=== PATIENT | male | born 1955 | race Caucasian/White ===

== ENCOUNTER → 2016-09-20 | Outpatient (CLI) | payer MEDICARE ==
[~2016-09-20] MED LIST: ACET325T49 PO; ALPR1T; ALPR1T PO; ALPR1TAB7 PO; ASP325TEC PO; ASP81CT; ASP81TEC PO; ASPI-586 PO; ATOR10TA PO; BUDE10.2 IH; CALTRATE PO; CARV12.52; CEFU500T5 PO; CRV25T PO; DAPA10TA PO; DIAZ10TA PO; DOCU-143 PO; ENAL2.5T PO; ENLP5T PO; FEXO-104 PO; FEXO-46 PO; FEXO180T; FOLI1TAB24 PO; FURO20TA4 PO; HALO5VIA12 IM; HYDR-3583 PO; HYDR-3816 PO; ICOS1CAP PO; INSASP10V; INSASP10V SQ; INSU100V16 SQ; INSU100V6 SQ; INSU100V8; IPRA3AMP INH; LEVO750T39 PO; MAGN400T6 PO; Multivitamins/Minerals Therap PO; NF-ESOM40C; NF-LOVAZAC PO; OMEG1CAP PO; OMEG1CAP51; OMEP20CA12 PO; OXYC20TA54 PO; PANT40TA3 PO; PARO20TA57 PO; POLY119P5 PO; POLY255P PO; TIZA2TAB3 PO; TRAZ-28 PO; TRAZ150T42 PO; TRAZ150T72 PO; TRAZADONE; TRZ100T
--- OUTSIDE RECORDS SUMMARY | 2016-09-20 11:27 | XMS REPORT | Continuity of Care Document ---
Author Author [facility] Organization [facility] Address Unknown Phone Unavailable Care Team Providers Care In Flight Technician Name Role Phone Database, Not In PCP Unavailable Source Comments Some departments are not documenting in the electronic medical record. If you do not see the information that you expected, contact Release of Information in the Health Information Management department at [phone] for further assistance in locating additional records.[facility] Active Allergies and Adverse Reactions No Active Allergies Current Medications Prescription Sig. Disp. Refills Start End Date Status Date carvedilol (COREG) 25 mg Take 1 Tab by mouth Twice Active tablet Daily With Meals. enalapril (VASOTEC) 5 mg Take 1 Tab by mouth Active tablet Daily. furosemide (LASIX) 20 mg Take 1 Tab by mouth Daily Active tablet With Breakfast. insulin glargine (LANTUS) Inject into area(s) as Active 100 unit/mL injection directed Take as Directed. 10 units am, 45 units bedtime insulin aspart (NOVOLOG) Inject into area(s) as Active 100 unit/mL injection directed Three Times Daily With Meals. 23 units with breakfast, 10 units with lunch, 43 units with dinner [facility]-3 Fatty Take 4 Caps by mouth Active Acids-Vitamin E (FISH Twice Daily. OIL) 1,000 mg Cap fexofenadine,+, (SHIRA) Take 180 mg by mouth Active 180 mg tablet Daily. omeprazole DR,+, Take 20 mg by mouth Active (PRILOSEC) 20 mg capsule Daily. citalopram (CELEXA) 40 mg Take 1 Tab by mouth Active tablet Daily. paroxetine (PAXIL) 20 mg Take 1 Tab by mouth Active tablet Daily. trazodone (DESYREL) 150 Take 1 Tab by mouth At Active mg tablet Bedtime as needed. for sleep alprazolam (XANAX) 1 mg Take 1 mg by mouth Three Active tablet Times Daily. magnesium oxide (MAG-OX) Take 1 Tab by mouth Active 400 mg tablet Daily. fish oil /omega-3 fatty Take 4,000 mg by mouth Active acids (SEA-OMEGA) Daily. 340/1000 mg Cap cephalexin (KEFLEX) 500 Take 1 Cap by mouth Four 12 Cap 0 01/09/ Active mg capsule Times Daily. 10 Active Problems Problem Noted Date Cardiomyopathy ([facility]) 01/08/2010 Overview: - EF reportedly in past 30-35% - Echocardiogram 06/02/2009 L Ventricle dilation, severe hypokinesia involving the anterior wall, anteroseptum, and anterolateral wall. Moderate hypokinesia involving the rest of the left ventricle. Systolic function reduced estimated EF 40% Echogenic density noted at the apex, most probably representing apical thrombus.left atrium dilation. Right atrium and ventricle normal in size. Estimated pulmonary artery pressure 35mmHg - 12/06/09 Follow up Echo EF 35-40% CHF (congestive heart failure) ([facility]) 01/08/2010 Overview: NYHA Class 3 Sxs DM (diabetes mellitus) ([facility]) 01/08/2010 HTN (hypertension) 01/08/2010 Pulmonary hypertension ([facility]) 01/08/2010 Hypercholesteremia 01/08/2010 IVCD (intraventricular conduction defect) 01/08/2010 Overview: 12/06/09 [id number] S/P cardiac cath 01/08/2010 Overview: - Reported Cardiac cath in 2003 - Cardiac [id number] [facility] in [facility]--Large LV EF 40%, Nml LM and "huge" nml LCx, LAD large with minimal plaque in mid portion, RCA dimunitive and no signif narrowing Social History Tobacco Use Types Packs/Day Years Used Date Never Assessed Last Filed Vital Signs Vital Sign Reading Time Taken Blood Pressure 136/92 01/09/2010 2:00 PM CDT Pulse 69 01/09/2010 4:10 PM CDT Temperature 36.3 C (97.3 F) 01/09/2010 12:07 PM CDT Respiratory Rate - - Height 1.88 m (6' 2") 01/09/2010 6:00 AM CDT Weight 124.739 kg (275 lb) 01/09/2010 6:00 AM CDT Body Mass Index 35.29 01/09/2010 6:00 AM CDT Oxygen Saturation 95% 01/09/2010 2:00 PM CDT Plan of Care Health Maintenance Due Date Last Done Comments Physical (Comprehensive) 11/30/1963 Exam Pertussis Vaccine 11/30/1967 Tetanus Vaccine 1973 Dilated Eye Exam 1974 Foot Exam 1974 Hba1c 1974 Microalbumin 1974 Pneumonia Vaccine (Dm) 1974 Colorectal Cancer 2006 Screening Influenza Vaccine 04/18/2016 Results from Last 3 Months Not on file
--- NOTE | 2016-09-20 12:56 | Diagnostic Imaging Report ---
PROCEDURE: CT lumbar spine without contrast. TECHNIQUE: Multiple contiguous axial images were obtained through the lumbar spine without the use of intravenous contrast. Sagittal and coronal reformations were then performed. INDICATION: Back pain. CT lumbar spine without contrast. FINDINGS: There are postop changes from discectomy with cage insertion at L4-L5. There is an anchor screw in the L5 vertebral body on the left stabilizing the disc material. Patient is dorsal fusion rods at L4-L5. Bilaterally at L4 and L5 with pedicle screws. The hardware appears to be intact. The screws appear to be in good position. There is advanced degenerative disc changes at L5-S1. The L5-S1 disc space is essentially fused. There is a very slight retrolisthesis at that level. The T12-L1, L1-L2, L2-L3 and L3-L4 disc spaces are unremarkable. IMPRESSION: Postop changes from discectomy fusion at L4-L5 with laminectomies. There is chronic L5-S1 disc fusion. There are no acute abnormality seen in the lumbar spine. Dictated by: Dictated on workstation # [id number]
== END ==
LOC: RAD 11:23
PROVIDERS: ATTEND Orthopaedic Surgery
DX: M54.16 Radiculopathy, lumbar region (principal)
CPT/HCPCS: 72131

== ENCOUNTER 2016-11-24 20:15 | Observation (INO) | payer MEDICARE ==
[~2016-11-24] VITALS: Ht 190.5 cm; Wt 120.8 kg
[~2016-11-24 20:15] MED LIST changes: -PANT40TA3 PO; -POLY255P PO
[2016-11-24] MEDS ORDERED: TRAZ150T72 PO (20:35)
[2016-11-24] MEDS ORDERED: PANT40TA3 PO (20:35)
[2016-11-24] MEDS ORDERED: OXYC20TA54 PO (20:35)
[2016-11-24] MEDS ORDERED: POLY255P PO (20:35)
[2016-11-24 20:42] LABS: BASOPHILS # (AUTO) 0.1 10^3/uL (0.0-0.1); BASOPHILS % (AUTO) 1 % (0-10); EOSINOPHILS # (AUTO) 1.6 10^3/uL (0.0-0.3); EOSINOPHILS % (AUTO) 13 % (0-10); LYMPHOCYTES # (AUTO) 3.3 X 10^3 (1.0-4.0); LYMPHOCYTES % (AUTO) 28 % (12-44); MEAN CORPUSCULAR HEMOGLOBIN 31 PG (25-34); MEAN CORPUSCULAR HGB CONC 35 G/DL (32-36); MEAN CORPUSCULAR VOLUME 88 FL (80-99); MEAN PLATELET VOLUME 10.6 FL (7.4-10.4); MONOCYTES # (AUTO) 0.6 X 10^3 (0.0-1.0); MONOCYTES % (AUTO) 5 % (0-12); NEUTROPHILS # (AUTO) 6.4 X 10^3 (1.8-7.8); NEUTROPHILS % (AUTO) 54 % (42-75); PLATELET COUNT 172 10^3/uL (130-400); RED BLOOD COUNT 4.65 10^6/uL (4.35-5.85); RED CELL DISTRIBUTION WIDTH 13.5 % (10.0-14.5); WHITE BLOOD COUNT 11.9 10^3/uL (4.3-11.0)
[2016-11-24 20:49] LABS: INR 1.1 (0.8-1.4); PROTHROMBIN TIME PATIENT 13.9 SEC (12.2-14.7)
[2016-11-24 21:00] LABS: ALANINE AMINOTRANSFERASE 29 U/L (0-55); ALBUMIN 3.6 G/DL (3.2-4.5); ALCOHOL 197 MG/DL (<10); ANION GAP 14 MMOL/L (5-14); ASPARTATE AMINO TRANSFERASE 30 U/L (5-34); BILIRUBIN,TOTAL 0.7 MG/DL (0.1-1.0); BLOOD UREA NITROGEN 11 MG/DL (7-18); BUN/CREATININE RATIO 14; CARBON DIOXIDE 19 MMOL/L (21-32); CHLORIDE 96 MMOL/L (98-107); CREATININE SERUM 0.81 MG/DL (0.60-1.30); GFR ESTIMATED > 60; GLUCOSE 161 MG/DL (70-105); POTASSIUM 4.2 MMOL/L (3.6-5.0); SODIUM 129 MMOL/L (135-145); TOTAL PROTEIN 6.5 G/DL (6.4-8.2)
--- NOTE | 2016-11-24 21:04 | Diagnostic Imaging Report ---
INDICATION: Fall with pelvic pain. EXAM: AP pelvis obtained at 9:02 hours p.m. FINDINGS: No fracture or acute bony abnormality is seen. There are postop changes in the lumbar spine. IMPRESSION: No acute pelvic fracture. Dictated by: Dictated on workstation # [id number]
--- NOTE | 2016-11-24 21:05 | Diagnostic Imaging Report ---
INDICATION: Fall with left leg pain. EXAM: AP and lateral views of the left tibia and fibula are obtained at 9:07 hours p.m. FINDINGS: There is an old fracture deformity of the left fibular neck. There is an oblique fracture of the distal fibula at the ankle joint level without significant displacement. Suggest correlation with ankle series. IMPRESSION: Acute oblique fracture of the distal fibula at the level of the ankle joint. Suggest correlation with ankle series. There is an old fracture deformity of the fibular neck proximally. Dictated by: Dictated on workstation # [id number]
--- NOTE | 2016-11-24 21:07 | Diagnostic Imaging Report ---
INDICATION: Fall with left foot pain. EXAM: AP, oblique and lateral views of the left foot are obtained. FINDINGS: There is an acute oblique fracture of the distal fibula at the level of the ankle joint. There is diffuse degenerative change of the interphalangeal joints and the first MTP joint. There is a mild posterior calcaneal spurring. IMPRESSION: Acute oblique fracture of the distal fibula at the level of the ankle joint. Underlying degenerative changes. Dictated by: Dictated on workstation # [id number]
--- NOTE | 2016-11-24 21:08 | Diagnostic Imaging Report ---
INDICATION: Fall. EXAM: Frontal chest obtained at 9:00 hours p.m. COMPARISON: 09/10/2015. FINDINGS: There is cardiomegaly. Pacemaker device is unchanged. There is no pneumothorax or pleural fluid or focal infiltrate. IMPRESSION: Cardiomegaly, unchanged pacemaker device. No acute infiltrate, edema or pleural fluid. Dictated by: Dictated on workstation # [id number]
--- NOTE | 2016-11-24 21:17 | Diagnostic Imaging Report ---
INDICATION: Fall with head and neck pain CT brain findings: Noncontrast brain CT is performed. There were no extra-axial fluid collections. No intracranial hemorrhage. No intracranial mass or mass effect. No midline shift. The ventricles are normal in size and position. There are mild low-density changes in the deep white matter compatible with chronic ischemic change. Calvarial windows show no fractures. CT cervical spine findings: Axial slices were obtained with sagittal and coronal reconstructions without contrast. There was no evidence of cervical spine fracture. There is no subluxation or malalignment. There is marked diffuse degenerative change with disc space narrowing and osteophyte formation at essentially all levels. IMPRESSION: CT brain was unremarkable CT cervical spine shows multilevel degenerative changes with no acute fracture or subluxation. Dictated by: Dictated on workstation # [id number]
[2016-11-24 21:18] LABS: BAND NEUTROPHILS 1 %; BASOPHILS % (MANUAL) 0 %; EOSINOPHILS % (MANUAL) 17 %; LYMPHOCYTES % (MANUAL) 32 %; NEUTROPHILS % (MANUAL) 48 %
--- NOTE | 2016-11-24 21:29 | Diagnostic Imaging Report ---
INDICATION: Fall with back pain CT of the thoracic and lumbar spine obtained with axial slices without contrast and sagittal and coronal reconstructions. Patient has had previous fusion at L4-5 with disc prosthesis. The hardware appears in anatomic alignment. There is disc space narrowing at L5-S1 with osteophyte formation and slight retrolisthesis which appears chronic. There is osteophyte formation throughout the mid to lower thoracic spine and lumbar spine. There is no compression deformity or acute fracture. There is no overt canal narrowing. There is old fracture of the left L3 transverse process. There is an old fracture of the left L2 transverse process. IMPRESSION: Postoperative and chronic changes in the thoracolumbar spine as described above with no acute fracture. There is chronic mild retrolisthesis of L5 on S1. There are old left L2 and L3 transverse process fractures. Dictated by: Dictated on workstation # [id number]
[2016-11-24 21:30] VITALS: BP 127/89
[2016-11-24 22:30] VITALS: BP 133/88
[2016-11-24 22:56] LABS: BILIRUBIN,URINE NEGATIVE (NEGATIVE); KETONES,URINE NEGATIVE (NEGATIVE); LEUKOCYTE ESTERASE ,URINE NEGATIVE (NEGATIVE); NITRITE,URINE NEGATIVE (NEGATIVE); PH,URINE 6.5 (5-9); PROTEIN,URINE NEGATIVE (NEGATIVE); SQUAMOUS EPITHELIAL CELL,UR RARE /HPF; UROBILINOGEN,URINE NORMAL (NORMAL)
[2016-11-24 23:39] VITALS: BP 119/85
[2016-11-24 23:45] VITALS: BP 104/76
[2016-11-24] MEDS ORDERED: KETOROLAC 30 MG/ML VIAL IVP PRN (23:45)
[2016-11-24] MEDS: D5 1/2 NS W/KCL 20 MEQ/L 1,000 ML IV SCH (23:56)
[2016-11-25] VITALS (9 sets, daily range): BP systolic 80–129; BP diastolic 57–94
[2016-11-25] MEDS ORDERED: ONDANSETRON 4 MG (ZOFRAN) ORAL DISSOLVE TAB PO PRN (00:15)
[2016-11-25] MEDS ORDERED: ONDANSETRON 4 MG/2 ML (SDV) Z0FRAN IV PRN (00:15)
[2016-11-25] MEDS ORDERED: LORazepam INJ 2 MG/ML (ATIVAN) VIAL IM/IV PRN ×2 (00:15)
[2016-11-25] MEDS ORDERED: LORazepam 1 MG (ATIVAN) TAB PO PRN (00:15)
[2016-11-25] MEDS ORDERED: ANTACID SUSP 30 ML UDC (MYLANTA) PO PRN (00:15)
[2016-11-25] MEDS ORDERED: SENNA W/DOCUSATE (SENOKOT S) TABLET PO PRN (00:15)
[2016-11-25 04:25] LABS: BASOPHILS # (AUTO) 0.1 10^3/uL (0.0-0.1); BASOPHILS % (AUTO) 1 % (0-10); EOSINOPHILS # (AUTO) 1.5 10^3/uL (0.0-0.3); EOSINOPHILS % (AUTO) 13 % (0-10); LYMPHOCYTES # (AUTO) 3.1 X 10^3 (1.0-4.0); LYMPHOCYTES % (AUTO) 26 % (12-44); MEAN CORPUSCULAR HEMOGLOBIN 31 PG (25-34); MEAN CORPUSCULAR HGB CONC 35 G/DL (32-36); MEAN CORPUSCULAR VOLUME 87 FL (80-99); MEAN PLATELET VOLUME 10.6 FL (7.4-10.4); MONOCYTES # (AUTO) 0.8 X 10^3 (0.0-1.0); MONOCYTES % (AUTO) 7 % (0-12); NEUTROPHILS # (AUTO) 6.4 X 10^3 (1.8-7.8); NEUTROPHILS % (AUTO) 54 % (42-75); PLATELET COUNT 150 10^3/uL (130-400); RED BLOOD COUNT 4.35 10^6/uL (4.35-5.85); RED CELL DISTRIBUTION WIDTH 13.2 % (10.0-14.5); WHITE BLOOD COUNT 11.9 10^3/uL (4.3-11.0)
[2016-11-25] MEDS ORDERED: PANTOPRAZOLE 40 MG/10 ML (PROTONIX) VIAL IV SCH (04:30)
[2016-11-25 04:56] LABS: ALANINE AMINOTRANSFERASE 26 U/L (0-55); ALBUMIN 3.1 G/DL (3.2-4.5); ANION GAP 11 MMOL/L (5-14); ASPARTATE AMINO TRANSFERASE 29 U/L (5-34); BILIRUBIN,TOTAL 0.6 MG/DL (0.1-1.0); BLOOD UREA NITROGEN 10 MG/DL (7-18); BUN/CREATININE RATIO 13; CALCIUM 7.7 MG/DL (8.5-10.1); CARBON DIOXIDE 20 MMOL/L (21-32); CHLORIDE 99 MMOL/L (98-107); CREATININE SERUM 0.77 MG/DL (0.60-1.30); GFR ESTIMATED > 60; GLUCOSE 195 MG/DL (70-105); MAGNESIUM 1.6 MG/DL (1.8-2.4); PHOSPHORUS 2.8 MG/DL (2.3-4.7); POTASSIUM 3.8 MMOL/L (3.6-5.0); SODIUM 130 MMOL/L (135-145); TOTAL PROTEIN 5.5 G/DL (6.4-8.2)
--- NOTE | 2016-11-25 05:41 | ED General ---
General Chief Complaint: Substance Abuse Stated Complaint: S/P FALL; ALCOHOL INTOXICATION; L DISTAL FIBULA FR Nursing Triage Note: POSSIBLE FALL FROM STANDING POSITION. POS. ETOH INTAKE Nursing Sepsis Screen: No Definite Risk Source of Information: EMS Exam Limitations: Intoxication, Other (PT UNABLE TO GIVE ANY HISTORY AND IS NOT ANSWERING QUESTIONS. IS LIMITED HISTORIAN) History of Present Illness Time Seen by Provider: 20:18 Initial Comments PT ARRIVES VIA EMS EMS REPORT THAT PT IS INTOXICATED AND FELL DOWN--PT STATES HE HAS HAD "4 BEERS" THE ONLY OTHER THING PT WILL SAY IS THAT HE CAN'T WALK PT HAS BEEN VOMITING --CLOTHING IS COVERED IN VOMIT, AND EMS GAVE ZOFRAN 4 MG IV PRIOR TO ARRIVAL ACCUCHECK WAS 167 BY EMS UNABLE TO OBTAIN ANY INFORMATION FROM PT AT ALL--HE WILL NOT ANSWER QUESTIONS, IS VERY BELLIGERANT, AND WILL NOT EVEN STATE IF HE IS HURTING ANYWHERE. ARRIVES AND STATES SHE DID NOT SEE HIM FALL, SHE ONLY SAW PEOPLE STANDING AROUND HIM AND HELPING HIM GET UP. IS UNKNOWN IF FALL WAS WITNESSED OR NOT PT WITH LONG HISTORY OF ALCOHOLISM AND ALCOHOL RELATED MEDICAL PROBLEMS PCP: DR. METZGER VESSEL SLAGMAN: DR. HIGH Allergies and Home Medications Allergies Coded Allergies: codeine (Unverified Allergy, Unknown, 09/04/15) morphine (Unverified Adverse Reaction, Unknown, N/V, 09/04/15) Home Medications Alprazolam 1 Mg Tablet, 1 MG PO TID PRN for ANXIETY, (Reported) Aspirin 81 Mg Tablet.dr, 81 MG PO DAILY, (Reported) Atorvastatin Calcium 10 Mg Tablet, 10 MG PO DAILY, (Reported) Carvedilol 25 Mg Tablet, 25 MG PO BID, (Reported) Diazepam 10 Mg Tablet, 10 MG PO BID PRN for ANXIETY, (Reported) Enalapril Maleate 2.5 Mg Tablet, 2.5 MG PO DAILY, (Reported) Fexofenadine HCl 180 Mg Tablet, 180 MG PO DAILY PRN for allergies, (Reported) Furosemide 20 Mg Tablet, 20 MG PO DAILY, (Reported) Hydrocodone/Acetaminophen 1 Each Tablet, 1 TAB PO Q4H PRN for PAIN, #40 Ref 0 Prescribed by: HARRY BUSH on 07/17/16 1127 Insulin Aspart 100 Unit/1 Ml Susp, 25 UNIT SQ DAILY WITH SUPPER, (Reported) Insulin Glargine,Hum.rec.anlog 100 Unit/1 Ml Vial, 50 UNIT SQ HS, (Reported) Magnesium Oxide 400 Mg Tablet, 400 MG PO DAILY, (Reported) [place]-3 Acid Ethyl Esters 1 Gm Capsule, 2 GM PO BID, (Reported) take 2 (1gm) tabs Oxycodone HCl 20 Mg Tab.er.12h, 1 TAB PO UD, #60 (Reported) Pantoprazole Sodium 40 Mg Tablet.dr, 1 TAB PO UD, #30 (Reported) Polyethylene Glycol 3350 255 Gm Powder, #527 (Reported) Tizanidine HCl 2 Mg Tablet, 2 MG PO TID, (Reported) Trazodone HCl 150 Mg Tablet, 1 TAB PO UD, #180 (Reported) Constitutional: other (UNABLE TO OBTAIN ANY INFORMATION FROM PT) Past Ltwcsxp-Urwcum-Qqyxag Hx Patient Social History Alcohol Use: Regular Use Recreational Drug Use: No Smoking Status: Current Everyday Smoker Type Used: Cigarettes 2nd Hand Smoke Exposure: Yes Recent Foreign Travel: No Contact w/Someone Who Travel: No Recent Infectious Disease Expo: No Recent Hopitalizations: No Physical Abuse Screen: No Sexual Abuse: No Immunizations Up To Date Tetanus Booster (TDap): Unknown Date of Pneumonia Vaccine: Jun 16, 2015 Date of Influenza Vaccine: Jun 16, 2016 Seasonal Allergies Seasonal Allergies: Yes Surgeries HX Surgeries: Yes (CARDIAC CATH; RECTAL ABSCESS X 2, PACEMAKER 07/25/10, BACK SX; KNEE SURGERY) Surgeries: Gallbladder, Orthopedic, Pacemaker Respiratory Hx Respiratory Disorders: Yes Respiratory Disorders: COPD Cardiovascular Hx Cardiac Disorders: Yes ([employer] PACEMAKER FOR SICK SINUS SYNDROME; CHF; ) Cardiac Disorders: Cardiomyopathy, High Cholesterol, Hypertension Neurological Hx Neurological Disorders: No Reproductive System Hx Reproductive Disorders: No Genitourinary Hx Genitourinary Disorders: Yes Gastrointestinal Hx Gastrointestinal Disorders: Yes (RECTAL ABCESS TWO TIMES - DR. PLUNKETT; HEPATITIS C--NO TREATMENT DUE TO ALCOHOLISM) Gastrointestinal Disorders: Chronic Constipation, Hepatitis Musculoskeletal Hx Musculoskeletal Disorders: Yes (ARTHRITIS) Musculoskeletal Disorders: Arthritis, Chronic Back Pain Endocrine Hx Endocrine Disorders: Yes Endocrine Disorders: Diabetes, Insulin dep HEENT HX ENT Disorders: No Loss of Vision: Denies Hearing Impairment: Denies Cancer Hx Cancer: No Psychosocial Hx Psychiatric Problems: Yes Behavioral Health Disorders: Sleep Difficulties, Anxiety, Violent Behavior, Depression Integumentary HX Skin/Integumentary Disorder: Yes (PERIRECTAL ABSCESSES) Blood Transfusions Hx Blood Disorders: No Family Medical History Family Medial History: Cardiovascular disease 19 FATHER 19 MOTHER Colon cancer G8 BROTHER Diabetes mellitus 19 MOTHER Physical Exam Vital Signs Vital Sign - Last 12Hours 11/24/16 20:25 Temp 97.1 Pulse 81 Resp 18 B/P (MAP) 121/78 Pulse Ox 94 O2 Delivery Room Air Capillary Refill : Less Than 3 SecondsLess Than 3 Seconds General Appearance: Obese, Other (REEKS OF VOMIT AND ALCOHOL. PT WITH SLURRED SPEECH AND IS VERY BELLIGERANT TO STAFF, AND REPEATEDLY THREATENING TO [facility] AND ALL STAFF FROM THE TIME HE ARRIVES. THIS BEHAVIOR CONTINUED THROUGHOUT ER STAY. ALSO APPEARS TO HAVE BEEN INCONTINENT OF URINE, PANTS ARE SOAKED WITH URINE IN ADDITION TO VOMIT. ) HEENT: PERRL/EOMI, Other Neck: Full Range of Motion, Normal Inspection, Non Tender Respiratory: Normal Breath Sounds, No Accessory Muscle Use, No Respiratory Distress Cardiovascular: Regular Rate, Rhythm, No Edema, No JVD, No Murmur Gastrointestinal: Non Tender, Soft Back: No CVA Tenderness, Vertebral Tenderness (MID AND LOWER THORACIC AREA AND LUMBAR AREA) Extremity: Pedal Edema (LEFT LOWER LEG AND ANKLE WITH 2+ SWELLING. NO BRUISING OR ERYTHEMA. NOT TENDER TO PALPATION. PT FREELY MOVING LEGS AND FEET, AND NO TENDERNESS TO PALPATION OF EITHER LEG OR HIPS ), Other (PULSES +2/4 IN ALL EXTREMITIES AND BOTH POSTERIOR TIBIAL AND DORSALIS PEDIS PULSES IN BOTH FEET. OLD BRUISING TO ENTIRE RIGHT HAND. ) Neurologic/Psychiatric: Alert, No Motor/Sensory Deficits (GROSSLY INTACT, BUT PT DOES NOT FOLLOW COMMANDS OR ANSWER QUESTIONS DUE TO BELLIGERANCE/ ALCOHOL INTOXICATION. ), pig lead melter helper II-XII Norm as Tested, Other (ORIENTED TO PERSON AND PLACE , BUT NOT TIME OR SITUATION) Skin: Normal Color, Warm/Dry Progress/Results/Core Measures Results/Orders Lab Results Laboratory Tests Test 11/24/16 20:25 11/24/16 22:40 11/25/16 04:10 Range/Units White Blood Count 11.9 H 11.9 H 4.3-11.0 10^3/uL Red Blood Count 4.65 4.35 4.35-5.85 10^6/uL Hemoglobin 14.2 13.3 13.3-17.7 G/DL Hematocrit 41 38 L 40-54 % Mean Corpuscular Volume 88 87 80-99 FL Mean Corpuscular Hemoglobin 31 31 25-34 PG Mean Corpuscular Hemoglobin Concent 35 35 32-36 G/DL Red Cell Distribution Width 13.5 13.2 10.0-14.5 % Platelet Count 172 150 130-400 10^3/uL Mean Platelet Volume 10.6 H 10.6 H 7.4-10.4 FL Neutrophils (%) (Auto) 54 54 42-75 % Lymphocytes (%) (Auto) 28 26 12-44 % Monocytes (%) (Auto) 5 7 0-12 % Eosinophils (%) (Auto) 13 H 13 H 0-10 % Basophils (%) (Auto) 1 1 0-10 % Neutrophils # (Auto) 6.4 6.4 1.8-7.8 X 10^3 Lymphocytes # (Auto) 3.3 3.1 1.0-4.0 X 10^3 Monocytes # (Auto) 0.6 0.8 0.0-1.0 X 10^3 Eosinophils # (Auto) 1.6 H 1.5 H 0.0-0.3 10^3/uL Basophils # (Auto) 0.1 0.1 0.0-0.1 10^3/uL Neutrophils % (Manual) 48 % Lymphocytes % (Manual) 32 % Monocytes % (Manual) 2 % Eosinophils % (Manual) 17 % Basophils % (Manual) 0 % Band Neutrophils 1 % Blood Morphology Comment NORMAL Prothrombin Time 13.9 12.2-14.7 SEC INR Comment 1.1 0.8-1.4 Activated Partial Thromboplast Time 30 24-35 SEC Sodium Level 129 L 130 L 135-145 MMOL/L Potassium Level 4.2 3.8 3.6-5.0 MMOL/L Chloride Level 96 L 99 98-107 MMOL/L Carbon Dioxide Level 19 L 20 L 21-32 MMOL/L Anion Gap 14 11 5-14 MMOL/L Blood Urea Nitrogen 11 10 7-18 MG/DL Creatinine 0.81 0.77 0.60-1.30 MG/DL Estimat Glomerular Filtration Rate > 60 > 60 BUN/Creatinine Ratio 14 13 Glucose Level 161 H 195 H 70-105 MG/DL Calcium Level 8.0 L 7.7 L 8.5-10.1 MG/DL Total Bilirubin 0.7 0.6 0.1-1.0 MG/DL Aspartate Amino Transf (AST/SGOT) 30 29 5-34 U/L Alanine Aminotransferase (ALT/SGPT) 29 26 0-55 U/L Alkaline Phosphatase 117 98 40-136 U/L Troponin I < 0.30 <0.30 NG/ML B-Type Natriuretic Peptide < 10.0 <100.0 PG/ML Total Protein 6.5 5.5 L 6.4-8.2 G/DL Albumin 3.6 3.1 L 3.2-4.5 G/DL Serum Alcohol 197 H <10 MG/DL Urine Color YELLOW Urine Clarity CLEAR Urine pH 6.5 5-9 Urine Specific [place] 1.010 L 1.016-1.022 Urine Protein NEGATIVE NEGATIVE Urine Glucose (UA) NEGATIVE NEGATIVE Urine Ketones NEGATIVE NEGATIVE Urine Nitrite NEGATIVE NEGATIVE Urine Bilirubin NEGATIVE NEGATIVE Urine Urobilinogen NORMAL NORMAL MG/DL Urine Leukocyte Esterase NEGATIVE NEGATIVE Urine RBC (Auto) NEGATIVE NEGATIVE Urine RBC NONE /HPF Urine WBC NONE /HPF Urine Squamous Epithelial Cells RARE /HPF Urine Crystals NONE /LPF Urine Bacteria NONE /HPF Urine Casts NONE /LPF Urine Mucus NEGATIVE /LPF Urine Culture Indicated NO Urine Opiates Screen NEGATIVE NEGATIVE Urine Oxycodone Screen NEGATIVE NEGATIVE Urine Methadone Screen NEGATIVE NEGATIVE Urine Propoxyphene Screen NEGATIVE NEGATIVE Urine Barbiturates Screen NEGATIVE NEGATIVE Ur Tricyclic Antidepressants Screen NEGATIVE NEGATIVE Urine Phencyclidine Screen NEGATIVE NEGATIVE Urine Amphetamines Screen NEGATIVE NEGATIVE Urine Methamphetamines Screen NEGATIVE NEGATIVE Urine Benzodiazepines Screen POSITIVE H NEGATIVE Urine Cocaine Screen NEGATIVE NEGATIVE Urine Cannabinoids Screen NEGATIVE NEGATIVE Phosphorus Level 2.8 2.3-4.7 MG/DL Magnesium Level 1.6 L 1.8-2.4 MG/DL My Orders Orders - AMDALYN LÓPEZ DO Saline Lock/Iv-Start (11/24/16 20:31) Monitor-Rhythm Ecg Trace Only (11/24/16 20:31) Ct Head/Cervical Spine Wo (11/24/16 20:31) Ct Thoracic/Lumbar Spine Wo (11/24/16 20:31) Alcohol (11/24/16 20:31) Cbc With Automated Diff (11/24/16 20:31) Comprehensive Metabolic Panel (11/24/16 20:31) Drug Screen Stat (Urine) (11/24/16 20:31) Protime With Inr (11/24/16 20:31) Partial Thromboplastin Time (11/24/16 20:31) Ua Culture If Indicated (11/24/16 20:31) Chest 1 View, Ap/Pa Only (11/24/16 20:31) Tibia/Fibula, Left, 2 Views (11/24/16 20:31) Foot, Left, 3 Views (11/24/16 20:31) Pelvis (11/24/16 20:31) Manual Differential (11/24/16 20:25) Ekg Tracing (11/24/16 21:26) BNP (11/24/16 21:26) Troponin I (11/24/16 21:26) Branden Bandage (11/24/16 22:02) Steplite (11/24/16 22:02) Vital Signs/I&O Vital Sign - Last 12Hours 11/24/16 11/24/16 11/24/16 11/24/16 20:25 21:30 22:30 23:25 Temp 97.1 98.1 Pulse 81 76 71 68 Resp 18 18 16 20 B/P (MAP) 121/78 127/89 133/88 Pulse Ox 94 96 97 95 O2 Delivery Room Air Room Air Room Air 11/24/16 11/24/16 11/24/16 11/24/16 23:39 23:41 23:45 23:47 Pulse 75 90 105 Resp 14 23 B/P (MAP) 119/85 104/76 Pulse Ox 100 98 99 O2 Delivery Room Air Room Air 11/25/16 11/25/16 11/25/16 11/25/16 00:00 00:00 00:15 00:30 Temp 96.0 Pulse 76 72 74 Resp 25 10 9 B/P (MAP) 80/66 99/65 109/84 Pulse Ox 94 98 98 97 O2 Delivery Room Air Room Air Room Air Room Air 11/25/16 11/25/16 11/25/16 11/25/16 01:00 01:00 02:00 03:00 Pulse 71 71 74 75 B/P (MAP) 110/63 109/84 129/94 Pulse Ox 95 97 94 O2 Delivery Room Air Room Air Room Air 11/25/16 11/25/16 04:00 05:00 Temp 97.7 Pulse 70 70 B/P (MAP) 102/57 96/59 Pulse Ox 94 93 O2 Delivery Room Air Room Air Blood Pressure Mean: 71 Progress Note : Progress Note NO DETERIORATION IN PT'S CONDITION PT CONTINUED TO BE VERY BELLIGERANT AND NOT WANTING TO STAY, FAMILY AGREE THAT HE IS NOT SAFE TO BE AT HOME IN HIS CURRENT CONDITION AND ARE UNWILLING TO TAKE HIM HOME AND CONVINCED PT TO STAY ECG Initial ECG Impression Time: 22:23 Initial ECG Rate: 75 Initial ECG Comparisson: Unchanged Comment JUNCTIONAL RHYTHM? --PT HAS PACEMAKER Diagnostic Imaging Comments CT HEAD/CERVICAL SPINE--NO ACUTE PROCESS, CHRONIC CHANGES CT THORACIC AND LUMBAR SPINE--NO ACUTE PROCESS, CHRONIC CHANGES XRAYS PELVIS--NO ACUTE PROCESS XRAYS LEFT TIB-FIB AND FOOT--FX OF DISTAL FIBULA, AND OLD FRACTURE OF PROXIMAL FIBULA ALL PER RADIOLOGIST REPORTS @ 2229 Reviewed: Reviewed by Me Departure Communication Progress Notes 2234--SPOKE WITH DR. SMITH, TRAUMA SURGEON [employer]. ACCEPTS PT FOR ADMIT. WILL CONSULT ORTHO IN AM. Impression Impression: Primary Impression: ACUTE ALCOHOL INTOXICATION IN CHRONIC ALCOHOLISM Additional Impressions: Status post fall Closed fracture of left distal fibula Electrolyte imbalance Disposition: ADMITTED INPATIENT Condition: Improved Decision to Admit Reason: Admit from ER (Trauma) Decision to Admit/Date: Nov 24, 2016 Time/Decision to Admit Time: 22:35 Departure-Patient Inst. Referrals: STEPH METZGER DO (PCP) Primary Care Physician Patient Instructions: ALCOHOL AND SUBSTANCE ABUSE MADALYN LÓPEZ DO Nov 25, 2016 05:41
[2016-11-25] MEDS ORDERED: POTASSIUM CL 10MEQ/50ML IVPB 50 ML IV SCH (06:00)
[2016-11-25] MEDS ORDERED: KCL 20 MEQ TAB (K-DUR) PO SCH (06:00)
[2016-11-25] MEDS ORDERED: MAGNESIUM 1 GM/100 ML IVPB 100 ML IV SCH (06:00)
[2016-11-25] MEDS: MAGNESIUM 1 GM/100 ML IVPB 100 ML IV SCH ×4 (06:10→10:15)
--- NOTE | 2016-11-25 07:16 | Pulmonary Consultation ---
History of Present Illness History of Present Illness Date of Consultation 11/25/16 07:10 Date of Admission History of Present Illness 60yo with hx of alcoholism presented via EMS after becoming intoxicated and fell down and found to have fracture of distal fibula. Pt was very belligerent in ED. He is wanting to leave AMA however has no ride home currently. Allergies and Home Medications Allergies Coded Allergies: codeine (Unverified Allergy, Unknown, 09/04/15) morphine (Unverified Adverse Reaction, Unknown, N/V, 09/04/15) Home Medications Alprazolam 1 Mg Tablet, 1 MG PO TID PRN for ANXIETY, (Reported) Aspirin 81 Mg Tablet.dr, 81 MG PO DAILY, (Reported) Atorvastatin Calcium 10 Mg Tablet, 10 MG PO DAILY, (Reported) Carvedilol 25 Mg Tablet, 25 MG PO BID, (Reported) Diazepam 10 Mg Tablet, 10 MG PO BID PRN for ANXIETY, (Reported) Enalapril Maleate 2.5 Mg Tablet, 2.5 MG PO DAILY, (Reported) Fexofenadine HCl 180 Mg Tablet, 180 MG PO DAILY PRN for allergies, (Reported) Furosemide 20 Mg Tablet, 20 MG PO DAILY, (Reported) Hydrocodone/Acetaminophen 1 Each Tablet, 1 TAB PO Q4H PRN for PAIN, #40 Ref 0 Prescribed by: HARRY BUSH on 07/17/16 1127 Insulin Aspart 100 Unit/1 Ml Susp, 25 UNIT SQ DAILY WITH SUPPER, (Reported) Insulin Glargine,Hum.rec.anlog 100 Unit/1 Ml Vial, 50 UNIT SQ HS, (Reported) Magnesium Oxide 400 Mg Tablet, 400 MG PO DAILY, (Reported) [place]-3 Acid Ethyl Esters 1 Gm Capsule, 2 GM PO BID, (Reported) take 2 (1gm) tabs Oxycodone HCl 20 Mg Tab.er.12h, 1 TAB PO UD, #60 (Reported) Pantoprazole Sodium 40 Mg Tablet.dr, 1 TAB PO UD, #30 (Reported) Polyethylene Glycol 3350 255 Gm Powder, #527 (Reported) Tizanidine HCl 2 Mg Tablet, 2 MG PO TID, (Reported) Trazodone HCl 150 Mg Tablet, 1 TAB PO UD, #180 (Reported) Past Yaezrct-Cfpnlv-Bhuvym Hx Patient Social History Alcohol Use: Regular Use Recreational Drug Use: No Smoking Status: Current Everyday Smoker Type Used: Cigarettes 2nd Hand Smoke Exposure: Yes Recent Foreign Travel: No Contact w/Someone Who Travel: No Recent Infectious Disease Expo: No Recent Hopitalizations: No Physical Abuse Screen: No Sexual Abuse: No Immunizations Up To Date Tetanus Booster (TDap): Unknown Date of Pneumonia Vaccine: Jun 16, 2015 Date of Influenza Vaccine: Jun 16, 2016 Seasonal Allergies Seasonal Allergies: Yes Surgeries HX Surgeries: Yes (CARDIAC CATH; RECTAL ABSCESS X 2, PACEMAKER 07/25/10, BACK SX; KNEE SURGERY) Surgeries: Gallbladder, Orthopedic, Pacemaker Respiratory Hx Respiratory Disorders: Yes Respiratory Disorders: COPD Cardiovascular Hx Cardiac Disorders: Yes (MEDTRONIC PACEMAKER FOR SICK SINUS SYNDROME; CHF; ) Cardiac Disorders: Cardiomyopathy, High Cholesterol, Hypertension Neurological Hx Neurological Disorders: No Reproductive System Hx Reproductive Disorders: No Genitourinary Hx Genitourinary Disorders: Yes Gastrointestinal Hx Gastrointestinal Disorders: Yes (RECTAL ABCESS TWO TIMES - DR. PLUNKETT; HEPATITIS C--NO TREATMENT DUE TO ALCOHOLISM) Gastrointestinal Disorders: Chronic Constipation, Hepatitis Musculoskeletal Hx Musculoskeletal Disorders: Yes (ARTHRITIS) Musculoskeletal Disorders: Arthritis, Chronic Back Pain Endocrine Hx Endocrine Disorders: Yes Endocrine Disorders: Diabetes, Insulin dep HEENT HX ENT Disorders: No Loss of Vision: Denies Hearing Impairment: Denies Cancer Hx Cancer: No Psychosocial Hx Psychiatric Problems: Yes Behavioral Health Disorders: Sleep Difficulties, Anxiety, Violent Behavior, Depression Integumentary HX Skin/Integumentary Disorder: Yes (PERIRECTAL ABSCESSES) Blood Transfusions Hx Blood Disorders: No Family Medical History Family Medial History: Cardiovascular disease 19 FATHER 19 MOTHER Colon cancer G8 BROTHER Diabetes mellitus 19 MOTHER Exam Exam Vital Signs Date Time Temp Pulse Resp B/P (MAP) Pulse Ox O2 Delivery O2 Flow Rate FiO2 11/25/16 06:00 75 111/65 93 Room Air 11/25/16 05:00 70 96/59 93 Room Air 11/25/16 04:00 94 Room Air 11/25/16 04:00 97.7 70 102/57 94 Room Air 11/25/16 03:00 75 129/94 94 Room Air 11/25/16 02:00 74 109/84 97 Room Air 11/25/16 01:00 71 11/25/16 01:00 71 110/63 95 Room Air 11/25/16 00:30 74 9 109/84 97 Room Air 11/25/16 00:15 72 10 99/65 98 Room Air 11/25/16 00:00 96.0 76 25 80/66 98 Room Air 11/25/16 00:00 94 Room Air 11/24/16 23:47 105 11/24/16 23:45 90 23 104/76 99 Room Air 11/24/16 23:41 98 11/24/16 23:39 75 14 119/85 100 Room Air 11/24/16 23:25 98.1 68 20 95 11/24/16 22:30 71 16 133/88 97 Room Air 11/24/16 21:30 76 18 127/89 96 Room Air 11/24/16 20:25 97.1 81 18 121/78 94 Room Air I & O 11/25/16 07:00 Intake Total 330 ml Output Total 825 ml Balance -495 ml General Appearance: Obese, Other (REEKS OF VOMIT AND ALCOHOL. PT WITH SLURRED SPEECH AND IS VERY BELLIGERANT TO STAFF, AND REPEATEDLY THREATENING TO PRETTY HOSPITAL AND ALL STAFF FROM THE TIME HE ARRIVES. THIS BEHAVIOR CONTINUED THROUGHOUT ER STAY. ALSO APPEARS TO HAVE BEEN INCONTINENT OF URINE, PANTS ARE SOAKED WITH URINE IN ADDITION TO VOMIT. ) HEENT: PERRL/EOMI, Other Neck: Full Range of Motion, Normal Inspection, Non Tender Respiratory: Normal Breath Sounds, No Accessory Muscle Use, No Respiratory Distress Cardiovascular: Regular Rate, Rhythm, No Edema, No JVD, No Murmur Capillary Refill: Less Than 3 Seconds Extremity: Pedal Edema (LEFT LOWER LEG AND ANKLE WITH 2+ SWELLING. NO BRUISING OR ERYTHEMA. NOT TENDER TO PALPATION. PT FREELY MOVING LEGS AND FEET, AND NO TENDERNESS TO PALPATION OF EITHER LEG OR HIPS ), Other (PULSES +2/4 IN ALL EXTREMITIES AND BOTH POSTERIOR TIBIAL AND DORSALIS PEDIS PULSES IN BOTH FEET. OLD BRUISING TO ENTIRE RIGHT HAND. ) Neurologic/Psychiatric: Alert, No Motor/Sensory Deficits (GROSSLY INTACT, BUT PT DOES NOT FOLLOW COMMANDS OR ANSWER QUESTIONS DUE TO BELLIGERANCE/ ALCOHOL INTOXICATION. 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 -Pt states he does not want to see ortho and just wants to go home. I expect he will be leaving AMA today . Will transfer to 4th floor. I see no reason for pt to stay in ICU. Clinical Quality Measures DVT/VTE Risk/Contraindication: Risk Factor Score Per Nursin RFS Level Per Nursing on Admit: 4+=Very High MIKAELA ARAUJO DO Nov 25, 2016 07:16
[2016-11-25] MEDS ORDERED: PANTOPRAZOLE 40 MG (PROTONIX) TAB PO SCH (07:45)
--- NOTE | 2016-11-25 07:46 | Diagnostic Imaging Report ---
INDICATION: Fall. COMPARISON: 11/24/2016 FINDINGS: Single frontal view of the chest demonstrates normal heart size and pulmonary vascularity. The lungs are well aerated and clear. No large pleural effusion or pneumothorax is seen. The visualized osseous structures show no acute abnormalities. Left-sided dual-lead pacemaker is noted. IMPRESSION: 1. No acute cardiopulmonary process. Dictated by: Dictated on workstation # [id number]
--- NOTE | 2016-11-25 08:47 | History & Physical-Surgical ---
History of Present Illness History of Present Illness Reason for visit/HPI This is a 60yo with hx of alcoholism presented via EMS after becoming intoxicated and falling from a standing position. Patient reports that he only had about 5 beers as he was celebrating the fact that his daughter was . Patient reports that he has been having pain around his bilat calf muscles for 7 months that has made it difficult to walk. He states that he was having that pain when he fell. X rays of his legs were performed in the ER and patient has fracture of distal left fibula. Pt was very belligerent in ED. He is wanting to leave AMA and waiting for his daughter. Patient also report having hx of back surgery a year ago and right knee surgery, a few months ago. Date of Admission Nov 24, 2016 at 22:35 I consulted on this patient on 11/25/16 08:42 Attending Physician Precious Newman DO Admitting Physician Precious Newman DO Consult Allergies and Home Medications Allergies Coded Allergies: codeine (Unverified Allergy, Unknown, 09/04/15) morphine (Unverified Adverse Reaction, Unknown, N/V, 09/04/15) Home Medications Alprazolam 1 Mg Tablet, 1 MG PO TID PRN for ANXIETY, (Reported) Aspirin 81 Mg Tablet.dr, 81 MG PO DAILY, (Reported) Atorvastatin Calcium 10 Mg Tablet, 10 MG PO DAILY, (Reported) LAST FILLED 03-26-16 #90 Carvedilol 25 Mg Tablet, 25 MG PO DAILY, (Reported) Diazepam 10 Mg Tablet, 10 MG PO DAILY PRN for ANXIETY, (Reported) ONLY TAKES WHEN ALPRAZOLAM IS NOT WORKING- LAST FILLED #30 06-25-16 Enalapril Maleate 2.5 Mg Tablet, 2.5 MG PO DAILY, (Reported) Fexofenadine HCl 180 Mg Tablet, 180 MG PO DAILY PRN for ALLERGIES, (Reported) Furosemide 20 Mg Tablet, 20 MG PO DAILY, (Reported) Icosapent Ethyl 1 Gm Capsule, 2 GM PO BID, (Reported) TAKES 2 (1GM) CAPSULES Insulin Aspart 100 Unit/1 Ml Susp, 25-28 UNIT SQ WITH EVENING MEAL, (Reported) Insulin Glargine,Hum.rec.anlog 100 Unit/1 Ml Vial, 50 UNIT SQ HS, (Reported) Magnesium Oxide 400 Mg Tablet, 400 MG PO DAILY, (Reported) [place]-3 Acid Ethyl Esters 1 Gm Capsule, 2 GM PO BID, (Reported) take 2 (1gm) tabs Oxycodone HCl 20 Mg Tab.er.12h, 20 MG PO BID PRN for PAIN, (Reported) Pantoprazole Sodium 40 Mg Tablet.dr, 40 MG PO DAILY, (Reported) Polyethylene Glycol 3350 255 Gm Powder, 17 GM PO DAILY PRN for CONSTIPATION-1ST LINE, (Reported) Trazodone HCl 150 Mg Tablet, 150 MG PO HS, (Reported) Past Lhnibbo-Dlnjkq-Kqigdz Hx Patient Social History Alcohol Use: Regular Use Recreational Drug Use: No Smoking Status: Current Everyday Smoker Type Used: Cigarettes 2nd Hand Smoke Exposure: Yes Recent Foreign Travel: No Contact w/Someone Who Travel: No Recent Infectious Disease Expo: No Recent Hopitalizations: No Physical Abuse Screen: No Sexual Abuse: No Immunizations Up To Date Tetanus Booster (TDap): Unknown Date of Pneumonia Vaccine: Jun 16, 2015 Date of Influenza Vaccine: Jun 16, 2016 Seasonal Allergies Seasonal Allergies: Yes Surgeries HX Surgeries: Yes (CARDIAC CATH; RECTAL ABSCESS X 2, PACEMAKER 07/25/10, BACK SX; KNEE SURGERY) Surgeries: Gallbladder, Orthopedic, Pacemaker Respiratory Hx Respiratory Disorders: Yes Respiratory Disorders: COPD Cardiovascular Hx Cardiac Disorders: Yes (MEDTRONIC PACEMAKER FOR SICK SINUS SYNDROME; CHF; ) Cardiac Disorders: Cardiomyopathy, High Cholesterol, Hypertension Neurological Hx Neurological Disorders: No Reproductive System Hx Reproductive Disorders: No Genitourinary Hx Genitourinary Disorders: Yes Gastrointestinal Hx Gastrointestinal Disorders: Yes (RECTAL ABCESS TWO TIMES - DR. PLUNKETT; HEPATITIS C--NO TREATMENT DUE TO ALCOHOLISM) Gastrointestinal Disorders: Chronic Constipation, Hepatitis Musculoskeletal Hx Musculoskeletal Disorders: Yes (ARTHRITIS) Musculoskeletal Disorders: Arthritis, Chronic Back Pain Endocrine Hx Endocrine Disorders: Yes Endocrine Disorders: Diabetes, Insulin dep HEENT HX ENT Disorders: No Loss of Vision: Denies Hearing Impairment: Denies Cancer Hx Cancer: No Psychosocial Hx Psychiatric Problems: Yes Behavioral Health Disorders: Sleep Difficulties, Anxiety, Violent Behavior, Depression Integumentary HX Skin/Integumentary Disorder: Yes (PERIRECTAL ABSCESSES) Blood Transfusions Hx Blood Disorders: No Family Medical History Significant Family History: No Pertinent Family Hx Family Medial History: Cardiovascular disease 19 FATHER 19 MOTHER Colon cancer G8 BROTHER Diabetes mellitus 19 MOTHER Constitutional: other (intoxication) Respiratory: no symptoms reported Cardiovascular: no symptoms reported Gastrointestinal: no symptoms reported Genitourinary: no symptoms reported Musculoskeletal: back pain (hx of back surgery x 1 year. ), other (bilat calf pain.) Skin: no symptoms reported Physical Exam Vital Signs Vital Sign - Last 12Hours 11/24/16 20:25 Temp 97.1 Pulse 81 Resp 18 B/P (MAP) 121/78 Pulse Ox 94 O2 Delivery Room Air Capillary Refill : Less Than 3 SecondsLess Than 3 Seconds General Appearance: No Apparent Distress, Obese HEENT: Normal ENT Inspection Neck: Full Range of Motion, Normal Inspection, Supple Respiratory: Chest Non Tender, No Accessory Muscle Use, No Respiratory Distress Cardiovascular: Regular Rate, Rhythm Gastrointestinal: Non Tender, Soft, Other (large) Extremity: Normal Inspection, Normal Range of Motion, Calf Tenderness (x 7 months) Neurologic/Psychiatric: Alert, Oriented x3 Skin: Normal Color, Warm/Dry Data Review Labs Laboratory Tests 11/24/16 20:25: White Blood Count 11.9H, Red Blood Count 4.65, Hemoglobin 14.2, Hematocrit 41, Mean Corpuscular Volume 88, Mean Corpuscular Hemoglobin 31, Mean Corpuscular Hemoglobin Concent 35, Red Cell Distribution Width 13.5, Platelet Count 172, Mean Platelet Volume 10.6H, Neutrophils (%) (Auto) 54, Lymphocytes (%) (Auto) 28 , Monocytes (%) (Auto) 5, Eosinophils (%) (Auto) 13H, Basophils (%) (Auto) 1, Neutrophils # (Auto) 6.4, Lymphocytes # (Auto) 3.3, Monocytes # (Auto) 0.6, Eosinophils # (Auto) 1.6H, Basophils # (Auto) 0.1, Neutrophils % (Manual) 48, Lymphocytes % (Manual) 32, Monocytes % (Manual) 2, Eosinophils % (Manual) 17, Basophils % (Manual) 0, Band Neutrophils 1, Blood Morphology Comment NORMAL, Prothrombin Time 13.9, INR Comment 1.1, Activated Partial Thromboplast Time 30, Sodium Level 129L, Potassium Level 4.2, Chloride Level 96L, Carbon Dioxide Level 19L, Anion Gap 14, Blood Urea Nitrogen 11, Creatinine 0.81, Estimat Glomerular Filtration Rate > 60, BUN/Creatinine Ratio 14, Glucose Level 161H, Calcium Level 8.0L, Total Bilirubin 0.7, Aspartate Amino Transf (AST/SGOT) 30, Alanine Aminotransferase (ALT/SGPT) 29, Alkaline Phosphatase 117, Troponin I < 0.30, B-Type Natriuretic Peptide < 10.0, Total Protein 6.5, Albumin 3.6, Serum Alcohol 197H 11/24/16 22:40: Urine Color YELLOW, Urine Clarity CLEAR, Urine pH 6.5, Urine Specific [place] 1.010L, Urine Protein NEGATIVE, Urine Glucose (UA) NEGATIVE, Urine Ketones NEGATIVE, Urine Nitrite NEGATIVE, Urine Bilirubin NEGATIVE, Urine Urobilinogen NORMAL, Urine Leukocyte Esterase NEGATIVE, Urine RBC (Auto) NEGATIVE, Urine RBC NONE, Urine WBC NONE, Urine Squamous Epithelial Cells RARE, Urine Crystals NONE , Urine Bacteria NONE, Urine Casts NONE, Urine Mucus NEGATIVE, Urine Culture Indicated NO, Urine Opiates Screen NEGATIVE, Urine Oxycodone Screen NEGATIVE, Urine Methadone Screen NEGATIVE, Urine Propoxyphene Screen NEGATIVE, Urine Barbiturates Screen NEGATIVE, Ur Tricyclic Antidepressants Screen NEGATIVE, Urine Phencyclidine Screen NEGATIVE, Urine Amphetamines Screen NEGATIVE, Urine Methamphetamines Screen NEGATIVE, Urine Benzodiazepines Screen POSITIVEH, Urine Cocaine Screen NEGATIVE, Urine Cannabinoids Screen NEGATIVE 11/25/16 04:10: White Blood Count 11.9H, Red Blood Count 4.35, Hemoglobin 13.3, Hematocrit 38L, Mean Corpuscular Volume 87, Mean Corpuscular Hemoglobin 31, Mean Corpuscular Hemoglobin Concent 35, Red Cell Distribution Width 13.2, Platelet Count 150, Mean Platelet Volume 10.6H, Neutrophils (%) (Auto) 54, Lymphocytes (%) (Auto) 26 , Monocytes (%) (Auto) 7, Eosinophils (%) (Auto) 13H, Basophils (%) (Auto) 1, Neutrophils # (Auto) 6.4, Lymphocytes # (Auto) 3.1, Monocytes # (Auto) 0.8, Eosinophils # (Auto) 1.5H, Basophils # (Auto) 0.1, Sodium Level 130L, Potassium Level 3.8, Chloride Level 99, Carbon Dioxide Level 20L, Anion Gap 11, Blood Urea Nitrogen 10, Creatinine 0.77, Estimat Glomerular Filtration Rate > 60, BUN/ Creatinine Ratio 13, Glucose Level 195H, Calcium Level 7.7L, Total Bilirubin 0.6 , Aspartate Amino Transf (AST/SGOT) 29, Alanine Aminotransferase (ALT/SGPT) 26, Alkaline Phosphatase 98, Total Protein 5.5L, Albumin 3.1L, Phosphorus Level 2.8 , Magnesium Level 1.6L Radiology NAME: KRIS FERRER [facility] REC#: [id number] PHYSICIAN: MADALYN LÓPEZ DO CC: MADALYN LÓPEZ DO; BEBETO VELASQUEZ MD Page 1 of 1 RADIOLOGY REPORT VIA [facility], [facility]. [place], [place] CC: MADALYN LÓPEZ DO; BEBETO VELASQUEZ MD Page 1 of 1 RADIOLOGY REPORT NAME: KRIS FERRER [facility] REC#: [id number] PT STATUS: REG ER : 1955 PHYSICIAN: MADALYN LÓPEZ DO ADMIT DATE: 11/24/16/ER Signed Date of Exam: 11/24/16 FOOT, LEFT, 3 VIEWS INDICATION: Fall with left foot pain. EXAM: AP, oblique and lateral views of the left foot are obtained. FINDINGS: There is an acute oblique fracture of the distal fibula at the level of the ankle joint. There is diffuse degenerative change of the interphalangeal joints and the first MTP joint. There is a mild posterior calcaneal spurring. IMPRESSION: Acute oblique fracture of the distal fibula at the level of the ankle joint. Underlying degenerative changes. Dictated by: Dictated on workstation # [id number] Dict: 11/24/162103 Trans: 11/24/162113 [facility] [id number] Interpreted by: BEBETO VELASQUEZ MD Electronically signed by:BEBETO VELASQUEZ MD 11/24/162113 NAME: CARISSAKRIS Flynn [facility] REC#: [id number] PHYSICIAN: MADALYN LÓPEZ DO CC: MADALYN LÓPEZ DO; BEBETO VELASQUEZ MD Page 2 of 2 RADIOLOGY REPORT VIA [facility], [facility]. [place], [place] CC: MADALYN LÓPEZ DO; BEBETO VELASQUEZ MD Page 1 of 1 RADIOLOGY REPORT NAME: CARISSAKRIS Flynn [facility] REC#: [id number] PT STATUS: REG ER : 1955 PHYSICIAN: MARIBEL, MADALYN K DO ADMIT DATE: 11/24/16/ER Signed Date of Exam: 11/24/16 CT HEAD/CERVICAL SPINE WO INDICATION: Fall with head and neck pain CT brain findings: Noncontrast brain CT is performed. There were no extra-axial fluid collections. No intracranial hemorrhage. No intracranial mass or mass effect. No midline shift. The ventricles are normal in size and position. There are mild low-density changes in the deep white matter compatible with chronic ischemic change. Calvarial windows show no fractures. CT cervical spine findings: Axial slices were obtained with sagittal and coronal reconstructions without contrast. There was no evidence of cervical spine fracture. There is no subluxation or malalignment. There is marked diffuse degenerative change with disc space narrowing and osteophyte formation at essentially all levels. IMPRESSION: CT brain was unremarkable CT cervical spine shows multilevel degenerative changes with no acute fracture or subluxation. Dictated by: Dictated on workstation # [id number] Dict: 11/24/162110 Trans: 11/24/162138 [facility] [id number] Interpreted by: BEBETO VELASQUEZ MD Electronically signed by:BEBETO VELASQUEZ MD 11/24/169 Assessment/Plan Assessment/Plan Assessment/Plan S/P Fall-from stating position. Alcohol Intoxication- serum alcohol is 197 left distal fibula fx CT brain was unremarkable, CT cervical spine shows multilevel degenerative changes with no acute fracture or subluxation.Acute oblique fracture of the distal fibula at the level of the ankle joint. Underlying degenerative changes. [place]- seen and evaluated at 0815 on 11/25/16 Patient intoxicated yesterday when had fall from standing. Reported that patient would not answer questions appropriately or give any medical history. Patient brought by EMS. Patient had found to have left fibula fracture. Patient this morning states has been having problems with ambulation for several months. He falls frequently. Patient with history of alcoholism. Patient had emesis yesterday. Denies any nausea vomiting fever sweats chills shortness of breath or chest pain. general no acute distress head ncat eyes nonicteric nares patent mouth moist heart reg lungs nonlabored abdomen soft nontender ext right hand significant bruising minimal tenderness left ankle swelling. flat affect alert and oriented assessment as above Dr. Rodriguez for follow up walking boot and xray of left ankle x ray right hand likely dc later today discussed alcohol use Clinical Quality Measures DVT/VTE Risk/Contraindication: Risk Factor Score Per Nursin RFS Level Per Nursing on Admit: 4+=Very High STEPHANIE DAVIS WELT POCKET MACHINE OPERATOR Nov 25, 2016 08:47 VANI SMITH DO Nov 25, 2016 13:17
[2016-11-25] MEDS ORDERED: THIAMINE INJECTION 100 MG, FOLIC ACID INJECTION 1 MG, VITAMIN MULTI INJECTION 10 ML, MA... IV SCH ×5 (09:00)
--- NOTE | 2016-11-25 09:11 | Discharge Inst-Simple/Standard ---
Discharge Inst-Standard Patient Instructions/Follow Up Plan of Care/Instructions/FU: Follow up with Dr. Rodriguez as soon as possible. Patient wants Michael as He just operated on Right knee. Follow up with PCP in 1 week. Follow up with Dr. Deleon in 1-2 weeks. No more alcohol. Needs to wear Cam both Activity as Tolerated: No Discharge Diet: No Restrictions Planned Outpatient Orders/Ref. Pneu Vac Indicated: Yes STEPHANIE DAVIS APRN Nov 25, 2016 09:11
[2016-11-25] MEDS: D5 1/2 NS W/KCL 20 MEQ/L 1,000 ML IV SCH (09:13)
--- NOTE | 2016-11-25 09:18 | Consultation-Hospitalist ---
HPI History of Present Illness: HPI/Chief Complaint CC: Left distal fibular fracture sustained in fall while intoxicated HPI: This is a 60-year-old white male clinic patient of mine for the past 12 years with history of diabetes insulin-dependent managed by Dr. Newton, cardiomyopathy requiring pacemaker and defibrillator placement by Dr. Deleon, diabetic neuropathy and alcoholism with remote history of illicit drug use including LSD that presents to the ICU after sustaining a fall while intoxicated while he was celebrating the fact that his daughter is back in his life and she is 21 and is . He is wondering why he falls all the time which is several times a week and has thus far not resulted in a fracture until now. He is requesting Dr. Rodriguez his orthopedic surgeon so I cancelled the consult for Dr. Simpson and spoke with Dr. Rodriguez who recommended removable boot with dedicated ankle x-rays and follow-up as an outpatient for possibly arranging for repair surgery. Dr Deleon will be consulted for evaluation of PVD as source of falls and neuropathy. Source: patient Date Seen 11/25/16 Attending Physician Precious Metzger DO PCP Precious Metzger DO Referring Physician Date of Admission Nov 24, 2016 at 22:35 Home Medications & Allergies Home Medications Reviewed patient Home Medication Reconciliation Form Allergies Allergies Coded Allergies codeine (Unverified Allergy, Unknown, 09/04/15) morphine (Unverified Adverse Reaction, Unknown, N/V, 09/04/15) Past Paeocfd-Qqypkm-Hqigij Hx Patient Social History Marrital Status: single Employed/Student: unemployed Alcohol Use: Regular Use Recreational Drug Use: No Smoking Status: Current Everyday Smoker Type Used: Cigarettes 2nd Hand Smoke Exposure: Yes Physical Abuse Screen: No Sexual Abuse: No Recent Foreign Travel: No Contact w/other who traveled: No Recent Hopitalizations: No Recent Infectious Disease Expo: No Immunizations Up To Date Tetanus Booster (TDap): Unknown Date of Pneumonia Vaccine: Jun 16, 2015 Date of Influenza Vaccine: Jun 16, 2016 Seasonal Allergies Seasonal Allergies: Yes Surgeries HX Surgeries: Yes (CARDIAC CATH; RECTAL ABSCESS X 2, PACEMAKER 07/25/10, BACK SX; KNEE SURGERY) Surgeries: Gallbladder, Orthopedic, Pacemaker Respiratory Hx Respiratory Disorders: Yes Respiratory Disorders: COPD Cardiovascular Hx Cardiovascular Disorders: Yes (MEDTRONIC PACEMAKER FOR SICK SINUS SYNDROME; CHF; ) Cardiac Disorders: Cardiomyopathy, High Cholesterol, Hypertension Neurological Hx Neurological Disorders: No Reproductive System Hx Reproductive Disorders: No Genitourinary Hx Genitourinary Disorders: Yes Gastrointestinal Hx Gastrointestinal Disorders: Yes (RECTAL ABCESS TWO TIMES - DR. PLUNKETT; HEPATITIS C--NO TREATMENT DUE TO ALCOHOLISM) Gastrointestinal Disorders: Chronic Constipation, Hepatitis Musculoskeletal Hx Musculoskeletal Disorders: Yes (ARTHRITIS) Musculoskeletal Disorders: Arthritis, Chronic Back Pain Endocrine Hx Endocrine Disorders: Yes Endocrine Disorders: Diabetes, Insulin dep HEENT HX ENT Disorders: No Loss of Vision: Denies Hearing Impairment: Denies Cancer Hx Cancer: No Psychosocial Hx Psychiatric Problems: Yes Behavioral Health Disorders: Sleep Difficulties, Anxiety, Violent Behavior, Depression Integumentary HX Skin/Integumentary Disorder: Yes (PERIRECTAL ABSCESSES) Blood Transfusions Hx Blood Disorders: No Family Medical History Significant Family History: No Pertinent Family Hx Family Hx: Cardiovascular disease 19 FATHER 19 MOTHER Colon cancer G8 BROTHER Diabetes mellitus 19 MOTHER Review of Systems Constitutional: see HPI EENTM: no symptoms reported Respiratory: no symptoms reported Cardiovascular: no symptoms reported Genitourinary: no symptoms reported Musculoskeletal: joint pain Skin: no symptoms reported Psychiatric/Neurological: No Symptoms Reported All Other Systems Reviewed Negative Unless Noted: Yes Physical Exam Physical Exam Vital Signs Vital Sign - Last 12Hours 11/24/16 20:25 Temp 97.1 Pulse 81 Resp 18 B/P (MAP) 121/78 Pulse Ox 94 O2 Delivery Room Air Capillary Refill : Less Than 3 SecondsLess Than 3 Seconds General Appearance: No Apparent Distress, WD/WN, Chronically ill, Obese Eyes: Bilateral Eye Normal Inspection, Bilateral Eye PERRL HEENT: PERRL/EOMI, Normal ENT Inspection, Pharynx Normal Neck: Full Range of Motion, Normal Inspection, Non Tender, Supple, Carotid Bruit Respiratory: Chest Non Tender, Lungs Clear, Normal Breath Sounds, No Accessory Muscle Use, No Respiratory Distress Cardiovascular: Regular Rate, Rhythm, No Edema, No Gallop, No JVD, No Murmur, Normal Peripheral Pulses Gastrointestinal: Normal Bowel Sounds, No Organomegaly, No Pulsatile Mass, Non Tender, Soft Back: Normal Inspection, No CVA Tenderness, No Vertebral Tenderness Extremity: Normal Capillary Refill, Normal Inspection, No Calf Tenderness, No Pedal Edema, Other (left ankle pain noted) Neurologic/Psychiatric: Alert, Oriented x3, No Motor/Sensory Deficits, Normal Mood/Affect Skin: Normal Color, Warm/Dry Lymphatic: No Adenopathy Results Results/Procedures Lab Laboratory Tests 11/24/16 20:25 11/25/16 04:10 Assessment/Plan Admission Diagnosis Assessment: Acute left fibula fracture sustained in a fall while intoxicated Cardiomyopathy DM insulin dependent HTN HLP HTG ETOH-ism Smoker Assessment and Plan Plan: DC w/close f/u Dr Deleon to evaluate the PVD component and Dr Rodriguez Removable boot Not a anticoagulation candidate due to multiple falls per week and too high risk for bleeding catastrophic-armenta Clinical Quality Measures DVT/VTE Risk/Contraindication: Risk Factor Score Per Nursin RFS Level Per Nursing on Admit: 4+=Very High PRECIOUS METZGER DO Nov 25, 2016 09:18
[2016-11-25] MEDS ORDERED: ICOS1CAP PO (09:37)
--- NOTE | 2016-11-25 09:48 | Diagnostic Imaging Report ---
INDICATION: Right hand injury 3 views of right hand show no fracture, dislocation or other acute abnormalities. IMPRESSION: No acute fracture seen. Dictated by: Dictated on workstation # [id number]
--- NOTE | 2016-11-25 09:55 | Diagnostic Imaging Report ---
INDICATION: Fibular fracture. Mildly comminuted fractures lateral malleolus of the distal fibular present some overlying soft tissue swelling improved from the exam of one day previous and the alignment is stable and within normal limits. The medial and posterior malleolar revealed no acute fracture. The plafond and talar dome appeared intact. IMPRESSION: Decreased soft tissue swelling associated with stable alignment of distal fibular fracture. No adverse development. Dictated by: Dictated on workstation # [id number]
--- NOTE | 2016-11-25 13:02 | CONSULTATION REPORT ---
DATE OF CONSULTATION: REFERRING PHYSICIAN: Dr. Newman REASON FOR CONSULTATION: Ankle fracture. HISTORY: The patient was admitted following a fall and I was consulted by Dr. Newman. I explained to Dr. Newman that I would be unavailable today. I did review his x-rays which reveal a Oates type B lateral malleolus fracture. I communicated with her that this can be treated in a boot and I can follow him up as an outpatient. IMPRESSION: Left lateral malleolus fracture, likely stable. PLAN: Boot wear for comfort. Follow-up as an outpatient. Job ID: [id number] Dictated Date: 11/25/2016 11:54:04 Maintenance Department Technician Date: 11/25/2016 12:50:42/sangeeta
== END 2016-11-25 09:09 | disposition home or self-care (01) ==
LOC: EDUNIT# 20:15 → ER 20:17 → ICU 22:35 → UNDOADMOB 22:35 → ICU 23:29 → UNDODISOB 11-25 13:10
PROVIDERS: ADMIT Surgery; ATTEND Internal Medicine
DX: F10.220 Alcohol dependence with intoxication, uncomplicated (principal); S82.62XA Displaced fracture of lateral malleolus of left fibula, initial encounter for closed fracture; E11.40 Type 2 diabetes mellitus with diabetic neuropathy, unspecified; Z79.4 Long term (current) use of insulin; E87.8 Other disorders of electrolyte and fluid balance, not elsewhere classified; J44.9 Chronic obstructive pulmonary disease, unspecified; I42.9 Cardiomyopathy, unspecified; I10 Essential (primary) hypertension; F17.210 Nicotine dependence, cigarettes, uncomplicated; Z95.810 Presence of automatic (implantable) cardiac defibrillator; W19.XXXA Unspecified fall, initial encounter
CPT/HCPCS: 36415; 70450; 71010; 72125; 72128; 72131; 72170; 73120; 73590; 73610; 73630; 80053; 80306; 80320; 81000; 83735; 83880; 84100; 84484; 85007; 85025; 85027; 85610; 85730; 87081; 93005; 93041; G0378

== ENCOUNTER → 2017-08-26 | Outpatient (CLI) | payer MEDICARE ==
[~2017-08-26] MED LIST changes: +PANT40TA3 PO; +POLY255P PO
== END ==
LOC: CARD 08:14
PROVIDERS: ATTEND Physician Assistant
DX: I25.10 Atherosclerotic heart disease of native coronary artery without angina pectoris (principal); I11.0 Hypertensive heart disease with heart failure; I50.22 Chronic systolic (congestive) heart failure; E78.2 Mixed hyperlipidemia
CPT/HCPCS: 93306

== ENCOUNTER → 2017-09-08 | Outpatient (CLI) | payer MEDICARE ==
[~2017-09-08] MED LIST changes: +CATHETER FLUSH 10 ML SYR IV PRN; +REGADENOSON 0.4 MG/5 ML SYR (LEXISCAN) IV ONE
[2017-09-08 08:59] VITALS: BP 203/116
--- NOTE | 2017-09-09 08:57 | STRESS TEST ---
DATE OF SERVICE: 09/08/2017 LEXISCAN MYOVIEW STRESS TEST REPORT REFERRING PHYSICIANS: 1. Precious Newman DO 2. Juanito Ewing MD Baseline heart rate is 82. Baseline blood pressure is 203/116. Baseline EKG is sinus rhythm with no ischemic changes. In summary, the patient received 10.97 mCi of technetium-99 Myoview and the resting images were obtained. Then, the patient received 0.4 mg of Lexiscan followed by 29.8 mCi of technetium-99 Myoview. Throughout the test, there were no EKG changes. The resting and stress images were reviewed and compared in the short axis, horizontal long axis, and vertical long axis views. Review of the images showed diaphragmatic attenuation and motion artifact with mild decrease uptake at the mid to apical inferior wall with subtle reversibility. No significant ischemia was noted. SSS is 5. SDS is 5. TID value 1.05. On the gated images, the left ventricle appeared to be prominent with diffuse left ventricular hypokinesia, calculated ejection fraction 46%. CONCLUSION: 1. The patient tolerated Lexiscan well. 2. Diaphragmatic attenuation with motion artifact, no significant ischemia was noted. 3. Prominent left ventricle with diffuse left ventricular hypokinesia, calculated ejection fraction 46%. 4. Baseline hypertension persisted throughout test. Job ID: [id number] DocumentID: [id number] Dictated Date: 09/09/2017 08:06:45 Bar Hostess Date: 09/09/2017 08:56:43 Dictated By: KESHIA HIGH MD
== END ==
LOC: CARD 07:27
PROVIDERS: ATTEND Physician Assistant
DX: I25.10 Atherosclerotic heart disease of native coronary artery without angina pectoris (principal); I11.0 Hypertensive heart disease with heart failure; I50.22 Chronic systolic (congestive) heart failure; E78.2 Mixed hyperlipidemia
CPT/HCPCS: 78452; 93017

== ENCOUNTER → 2018-10-14 | Outpatient (CLI) | payer MEDICARE ==
[~2018-10-14] MED LIST changes: -CATHETER FLUSH 10 ML SYR IV PRN; +HYDR-34 PO; -HYDR-3816 PO; -IPRA3AMP INH; +IPRA3AMP31 INH; -POLY255P PO; +POLY255P16 PO; -REGADENOSON 0.4 MG/5 ML SYR (LEXISCAN) IV ONE; +TRAZ-189 PO; -TRAZ-28 PO
--- NOTE | 2018-10-14 08:42 | Diagnostic Imaging Report ---
Lumbar spine at 739 hours. INDICATION: Back pain. FINDINGS: The previous lumbar spine exam performed on 09/05/2015 noted postsurgical changes consistent with fusion of L4 and L5. In the interval since the prior exam, the patient has undergone another surgical procedure. There are now bilateral pedicle screws at each level from L2 through L5. There are also now interbody devices at L2-L3 and L3-L4. The orthopedic hardware seems to be in good position. In the interval since the previous study, however, there has been further narrowing of the disc space at L1-L2. There is now a prominent bridging osteophyte along the ventral aspect of the L1-L2 disc space as well. There is no fracture or acute bony abnormality identified. There is no sign of a paraspinal mass. There is mild symmetrical sclerosis of the sacroiliac joints. IMPRESSION: 1. In the interval since the prior exam, the fusion of L4-L5 has been extended to include L2 and L3. The orthopedic hardware appears to be in good position. 2. The degenerative disc and bony disease at L1-L2 disc space has worsened since the prior exam. If there is clinical concern regarding spinal stenosis or nerve root encroachment, then MRI would be recommended for further evaluation. 3. There is no acute bony abnormality noted. Dictated by: Dictated on workstation # [id number]
== END ==
LOC: RAD 07:01
PROVIDERS: ATTEND Nurse Practitioner
DX: M48.062 Spinal stenosis, lumbar region with neurogenic claudication (principal); M51.36 Other intervertebral disc degeneration, lumbar region; M89.9 Disorder of bone, unspecified; Z98.1 Arthrodesis status
CPT/HCPCS: 72110

== ENCOUNTER → 2018-12-07 | Outpatient (CLI) | payer MEDICARE | LOC: CARD 08:49 | PROVIDERS: ATTEND Internal Medicine Cardiovascular Disease | DX: I25.10 Atherosclerotic heart disease of native coronary artery without angina pectoris (principal); R07.89 Other chest pain; I10 Essential (primary) hypertension; E11.9 Type 2 diabetes mellitus without complications; E78.5 Hyperlipidemia, unspecified; I49.5 Sick sinus syndrome; R55 Syncope and collapse | CPT/HCPCS: 93306 ==

== ENCOUNTER 2020-06-20 05:34 | Outpatient (RCR) | payer MEDICARE ==
[~2020-06-20] VITALS: Ht 185 cm; Wt 97.7 kg
[~2020-06-20 05:34] MED LIST changes: +ALPR1TAB2 PO; -ENAL2.5T PO; +ENLP2.5T PO; +METF-397 PO; -PANT40TA3 PO; +PANT40TA52 PO; -TIZA2TAB3 PO; +TIZA2TAB7 PO; -TRAZ-189 PO; +TRZ50T PO
== END 2020-06-20 10:09 | disposition home or self-care (01) ==
LOC: PREOP 05:34
PROVIDERS: ATTEND Surgery
DX: Z01.812 Encounter for preprocedural laboratory examination (principal); Z20.828 Contact with and (suspected) exposure to other viral communicable diseases
CPT/HCPCS: 87635

== ENCOUNTER 2020-06-23 10:08 | Day surgery (SDC) | payer MEDICARE, MEDICAID ==
[~2020-06-23] VITALS: Ht 185 cm; Wt 97.7 kg
[2020-06-23] MEDS ORDERED: LACTATED RINGERS 1,000 ML IV ONE (10:28)
[2020-06-23] MEDS ORDERED: LACTATED RINGERS 1,000 ML IV STA (10:49)
[2020-06-23 11:00] VITALS: BP 109/74
[2020-06-23] MEDS ORDERED: HURRICAINE EXT TUBE (BENZOCAINE) XX PRN (11:00)
[2020-06-23] MEDS ORDERED: LIDOCAINE JELLY 2% 6 ML SYRINGE MM PRN (11:00)
[2020-06-23] MEDS ORDERED: PROPOFOL INJECTION 50 ML IV ONE (11:06)
--- NOTE | 2020-06-23 11:06 | Conscious Sedation/ASA ---
Conscious Sedation Pre-Proced Time 11:00 ASA Score 2 For ASA 3 and 4: Consider anesthesia and medical clearance. Also, for patients with a history of failed moderate sedation consider anesthesia. Airway Lungs Heart ASA score ASA 1: a normal healthy patient ASA 2: a patient with a mild systemic disease (mid diabetes, controlled hypertension, obesity ASA 3: a patient with a severe systemic disease that limits activity (angina, COPD, prior Myocardial infarction) ASA 4: a patient with an incapacitating disease that is a constant threat to life (CHF, renal failure) ASA 5: a moribund patient not expected to survive 24 hrs. (ruptured aneurysm) ASA 6: a declared brain- patient whose organs are being harvested. For emergent operations, add the letter E after the classification Mallampati Classification Grade 2 Sedation Plan Analgesia, Amnesia, Plan communicated to team members, Discussed options with patient/fam, Discussed risks with patient/fam The patient is an appropriate candidate to undergo the planned procedure, sedation, and anesthesia. The patient immediately re-assessed prior to indication. DANIAL ROSE MD Jun 23, 2020 11:06
--- NOTE | 2020-06-23 11:07 | Progress Note-Pre Operative ---
Pre-Operative Progress Note H&P Reviewed The H&P was reviewed, patient examined and no changes noted. Date Seen by Provider: Jun 23, 2020 Time Seen by Provider: 11:00 Date H&P Reviewed: Jun 23, 2020 Time H&P Reviewed: 11:00 Pre-Operative Diagnosis: GERD, screening DANIAL ROSE MD Jun 23, 2020 11:07
[2020-06-23] MEDS ORDERED: PANT40TA2 PO (11:08)
--- NOTE | 2020-06-23 11:08 | Discharge Inst-Surgical ---
D/C Lap Instructions-KIDO New, Converted, or Re-Newed RX: RX on Chart Follow Up Activity as tolerated High Fiber Diet 25g or more per day Avoid Alcohol, Caffeine, Spicy [facility] and Acid foods. Drink 64 fluid oz or more of fluids per day. Symptoms to Report: Fever over 101 degree F, Nausea/Vomiting If any problems/questions: Contact your physician or go to Emergency Room DANIAL ROSE MD Jun 23, 2020 11:08
[2020-06-23] MEDS ORDERED: morphine INJ 10 MG/ML 1ML (SYR OR VIAL) IVP PRN ×2 (11:15)
[2020-06-23] MEDS ORDERED: ACETAMINOPHEN 325 MG TABLET PO PRN (11:15)
[2020-06-23] MEDS ORDERED: ONDANSETRON 4 MG/2 ML (SDV) Z0FRAN IVP PRN (11:15)
[2020-06-23] MEDS ORDERED: MIDAZOLAM 2 MG/2 ML (VERSED) VIAL ONE (11:35)
[2020-06-23] MEDS ORDERED: HURRICAINE EXT TUBE (BENZOCAINE) ONE (11:41)
[2020-06-23] MEDS ORDERED: LIDOCAINE JELLY 2% 6 ML SYRINGE ONE (11:41)
[2020-06-23 12:10] VITALS: BP 99/66
[2020-06-23 12:15] VITALS: BP 97/66
[2020-06-23 12:20] VITALS: BP 124/69
--- NOTE | 2020-06-23 12:32 | Progress Note-Post Operative ---
Post-Operative Progess Note Surgeon (s)/Speech And Drama Teacher (s) Surgeon DANIAL ROSE MD Speech And Drama Teacher: none Pre-Operative Diagnosis GERD, screening Post-Operative Diagnosis reflux esophagitis(stage 2), small HH(2.5cm), moderate gastritis. chronic stage 2 ext and int hemorrhoids, mild-mod sigmoid diverticulosis. Procedure & Operative Findings Date of Procedure 06/23/20 Procedure Performed/Findings EGD with bx. Colonoscopy Anesthesia Type mac Estimated Blood Loss Estimated blood loss (mL): minimal Specimens/Packing Specimens Removed ge jxn, antrum DANIAL ROSE MD Jun 23, 2020 12:32
[2020-06-23 12:50] VITALS: BP 118/68
[2020-06-23 12:55] VITALS: BP 118/68
--- NOTE | 2020-06-23 13:35 | Anesthesia-General Post-Op ---
MAC Patient Condition Mental Status/LOC: Same as Preop Cardiovascular: Satisfactory Nausea/Vomiting: Absent Respiratory: Satisfactory Pain: Controlled Complications: Absent Post Op Complications Complications None Follow Up Care/Instructions Patient Instructions None needed. Anesthesiology Discharge Order Discharge Order Patient is doing well, no complaints, stable vital signs, no apparent adverse anesthesia problems. No complications reported per nursing. MACIE ROWAN CRNA Jun 23, 2020 13:35
--- NOTE | 2020-06-23 22:09 | OPERATIVE REPORT ---
DATE OF SERVICE: 06/23/2020 ATTENDING PRIMARY CARE PHYSICIAN: Precious Newman DO PREOPERATIVE DIAGNOSES: Gastroesophageal reflux disease, screening colonoscopy. POSTOPERATIVE DIAGNOSES: Reflux esophagitis stage II, small hiatal hernia 2.5 cm in size, moderate severity gastritis. No distal obstructions. Chronic stage II external and internal hemorrhoids, mild to moderate sigmoid diverticulosis. PROCEDURE: EGD with biopsy, colonoscopy. SURGEON: Danial Macias MD ANESTHESIA: Monitored anesthesia care. ESTIMATED BLOOD LOSS: Minimal. FINDINGS: Same as postoperative diagnoses. DISPOSITION: The patient tolerated the procedure well. INDICATIONS: The patient is a 64-year-old male known to us. He has a history of gastroesophageal reflux disease as well as a history of hepatitis C. We had done an EGD and colonoscopy in 2012. He was seen in the office for worsening epigastric burning sensation as well as crampy pain, which was triggered by any food. He also is in need of a screening colonoscopy. He did report some small amounts of self-limited blood per rectum. He does not report any family history of colon cancer. DESCRIPTION OF PROCEDURE: The patient was brought to the endoscopy suite, laid in the left lateral decubitus position with head slightly elevated. After adequate IV pain and stated medications and monitored anesthesia care, the mouthpiece was applied. The endoscope was placed in the mouth, visualizing the pharynx and hypopharyngeal region. Vocal cords, epiglottis and vallecula identified and appeared to be normal. The endoscope was gently abated esophageal opening and esophagus insufflated. The endoscope was then advanced to the first, second and third portion of esophagus at the level of the GE junction, reflux esophagitis stage II identified. There were no ulcers or strictures identified in this region. A biopsy was taken with forceps with visualization of good hemostasis. The endoscope was then advanced into the stomach and endoscope retroflexed, visualizing a small hiatal hernia approximately 2.5 cm in size. There was a moderate severity gastritis. No formal ulcerations, polyps, or any neoplasms. A biopsy was taken of the antrum to rule out H. pylori with visualization of good hemostasis. The endoscope was then advanced to the pylorus and the first and second portion of the duodenum, which appeared normal with no distal obstructions. The endoscope was then slowly withdrawn while taking a second look and suctioning of residual air with no additional findings. Under the same anesthesia, we then proceeded with colonoscopy portion of the procedure. A digital rectal examination was performed, which revealed mild stage II external and internal hemorrhoids, not actively edematous or inflamed and no bleeding. Normal sphincter tone was felt and there were no palpable masses. The prostate gland was palpable and appeared normal. The endoscope was then intubated into anus and rectum gently insufflated. The endoscope was then advanced through the valves of Phelps rectum with no polyps or any neoplasms identified. We then proceeded through the sigmoid colon where mild to moderate sigmoid diverticulosis identified. There were no mucosal inflammatory changes to indicate any active diverticulitis. The endoscope was then advanced to the remainder of the descending, transverse and ascending colon to the cecum. These segments were normal. There were no polyps or any neoplasms identified throughout the colon or rectum. The endoscope was then slowly withdrawn while taking a second look and suctioning residual air with no additional findings. The patient tolerated the procedure well. We will recommend the necessary lifestyle and diet accommodation including small and more frequent meals, avoidance of eating at night as well as head elevation while lying supine. He also needs to avoid caffeinated beverages, spicy, greasy and acidic foods. We will have him continue with his Protonix daily and also add Carafate 1 gram q.i.d. for the next 2 weeks and also on a p.r.n. basis. We will also recommend a high fiber diet with at least 30 grams of fiber daily as well as significant amounts of water to promote soft stools on a daily basis. From a standpoint of colonoscopies, if he is asymptomatic, he may wait 10 years for his next colonoscopy. Job ID: [id number] DocumentID: [id number] Dictated Date: 06/23/2020 12:23:36 Barrel Assembler Date: 06/23/2020 22:08:32 Dictated By: DANIAL MACIAS MD
== END 2020-06-23 13:00 | disposition home or self-care (01) ==
LOC: ENDO 10:08
PROVIDERS: ATTEND Surgery
DX: Z12.11 Encounter for screening for malignant neoplasm of colon (principal); K64.1 Second degree hemorrhoids; K57.30 Diverticulosis of large intestine without perforation or abscess without bleeding; K29.50 Unspecified chronic gastritis without bleeding; K21.00 Gastro-esophageal reflux disease with esophagitis, without bleeding; K44.9 Diaphragmatic hernia without obstruction or gangrene; B19.20 Unspecified viral hepatitis C without hepatic coma; I25.10 Atherosclerotic heart disease of native coronary artery without angina pectoris; J44.9 Chronic obstructive pulmonary disease, unspecified; F32.9 Major depressive disorder, single episode, unspecified; F41.9 Anxiety disorder, unspecified; M06.9 Rheumatoid arthritis, unspecified; E11.9 Type 2 diabetes mellitus without complications; K21.9 Gastro-esophageal reflux disease without esophagitis; I49.5 Sick sinus syndrome; E78.00 Pure hypercholesterolemia, unspecified; E78.1 Pure hyperglyceridemia; R32 Unspecified urinary incontinence; I11.0 Hypertensive heart disease with heart failure; I50.9 Heart failure, unspecified; Z79.899 Other long term (current) drug therapy; Z95.0 Presence of cardiac pacemaker; Z80.0 Family history of malignant neoplasm of digestive organs
CPT/HCPCS: 82962; 88305

== ENCOUNTER 2021-03-28 10:59 | Emergency (ER) | payer MEDICARE, MEDICAID ==
[~2021-03-28] VITALS: Ht 185 cm; Wt 99.7 kg
[~2021-03-28 10:59] MED LIST changes: -FOLI1TAB24 PO; +FOLI1TAB33 PO; -OMEG1CAP PO; +PANT40TA2 PO; +TIZA-169 PO; -TIZA2TAB7 PO
[2021-03-28] MEDS ORDERED: NS IV 1000 ML 1,000 ML IV SCH (11:15)
[2021-03-28 11:35] LABS: BASOPHILS # (AUTO) 0.1 10^3/uL (0.0-0.1); BASOPHILS % (AUTO) 1 % (0-10); EOSINOPHILS # (AUTO) 0.6 10^3/uL (0.0-0.3); EOSINOPHILS % (AUTO) 7 % (0-10); HEMATOCRIT 44 % (40-54); HEMOGLOBIN 14.7 g/dL (13.3-17.7); LYMPHOCYTES # (AUTO) 1.7 10^3/uL (1.0-4.0); LYMPHOCYTES % (AUTO) 20 % (12-44); MEAN CORPUSCULAR HEMOGLOBIN 30 pg (25-34); MEAN CORPUSCULAR HGB CONC 34 g/dL (32-36); MEAN CORPUSCULAR VOLUME 89 fL (80-99); MEAN PLATELET VOLUME 10.2 fL (9.0-12.2); MONOCYTES # (AUTO) 0.5 10^3/uL (0.0-1.0); MONOCYTES % (AUTO) 6 % (0-12); NEUTROPHILS # (AUTO) 5.8 10^3/uL (1.8-7.8); NEUTROPHILS % (AUTO) 66 % (42-75); PLATELET COUNT 194 10^3/uL (130-400); WHITE BLOOD COUNT 8.9 10^3/uL (4.3-11.0)
[2021-03-28 11:35] LABS: BILIRUBIN,URINE NEGATIVE (NEGATIVE); CLARITY,URINE CLEAR; COLOR,URINE YELLOW; GLUCOSE, URINE (UA) NEGATIVE (NEGATIVE); KETONES,URINE NEGATIVE (NEGATIVE); LEUKOCYTE ESTERASE ,URINE NEGATIVE (NEGATIVE); NITRITE,URINE NEGATIVE (NEGATIVE); PH,URINE 6.5 (5-9); PROTEIN,URINE NEGATIVE (NEGATIVE)
[2021-03-28 11:44] LABS: CHLORIDE 104 MMOL/L (98-107); SODIUM 139 MMOL/L (135-145)
[2021-03-28 11:45] LABS: ALBUMIN 3.9 GM/DL (3.2-4.5)
[2021-03-28 11:46] LABS: AMMONIA 28 UMOL/L (11-32); CALCIUM 9.1 MG/DL (8.5-10.1)
[2021-03-28 11:47] LABS: GLUCOSE 130 MG/DL (70-105); TOTAL PROTEIN 6.8 GM/DL (6.4-8.2)
[2021-03-28 11:48] LABS: CARBON DIOXIDE 24 MMOL/L (21-32)
[2021-03-28 11:49] LABS: BILIRUBIN,TOTAL 0.5 MG/DL (0.1-1.0)
[2021-03-28 11:49] LABS: BACTERIA,URINE TRACE /HPF; SQUAMOUS EPITHELIAL CELL,UR RARE /HPF; WBC,URINE RARE /HPF
[2021-03-28 11:51] LABS: ALKALINE PHOSPHATASE 61 U/L (40-136); GFR ESTIMATED 114
[2021-03-28 11:51] LABS: AMPHETAMINE SCREEN, URINE NEGATIVE (NEGATIVE); BARBITURATE SCREEN URINE NEGATIVE (NEGATIVE); BENZODIAZEPINES SCREEN URINE NEGATIVE (NEGATIVE); CANNABINOID SCREEN, URINE NEGATIVE (NEGATIVE); COCAINE SCREEN URINE NEGATIVE (NEGATIVE); METHADONE STAT NEGATIVE (NEGATIVE); METHAMPHETAMINE SCREEN URINE S NEGATIVE (NEGATIVE); OPIATE SCREEN URINE NEGATIVE (NEGATIVE); OXYCODONE STAT POSITIVE (NEGATIVE); PROPOXYPHENE STAT NEGATIVE (NEGATIVE); TRICYCLIC ANTIDEPRESSANTS SCRE NEGATIVE (NEGATIVE)
[2021-03-28 11:52] LABS: BUN/CREATININE RATIO 11
[2021-03-28 11:53] LABS: SALICYLATE < 5.0 MG/DL (5.0-20.0)
[2021-03-28] MEDS ORDERED: morphine INJ 10 MG/ML 1ML (SYR OR VIAL) IVP STA (11:53)
[2021-03-28 11:54] LABS: ALANINE AMINOTRANSFERASE 17 U/L (0-55); LIPASE 48 U/L (8-78)
[2021-03-28 11:55] LABS: ACETAMINOPHEN < 10 UG/ML (10-30)
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
[2021-03-28 12:50] LABS: INR 1.1 (0.8-1.4); PROTHROMBIN TIME PATIENT 14.1 SEC (12.2-14.7)
[2021-03-28 13:04] LABS: MAGNESIUM 1.7 MG/DL (1.6-2.4)
[2021-03-28] MEDS ORDERED: HOLD METFORMIN - RECEIVED CONTRAST 20 ML VIAL IV SCH (13:15)
[2021-03-28] MEDS ORDERED: CATHETER FLUSH 10 ML SYR IV PRN (13:15)
[2021-03-28] MEDS ORDERED: IOHEXOL 350 MG/ML 100 ML (OMNIPAQUE 350) VIAL IV ONE (13:15)
[2021-03-28] MEDS ORDERED: NS 100 ML (IVPB) BAG IV ONE (13:15)
--- NOTE | 2021-03-28 13:43 | Diagnostic Imaging Report ---
PROCEDURE: CT abdomen and pelvis with contrast. TECHNIQUE: Multiple contiguous axial images were obtained through the abdomen and pelvis after administration of intravenous contrast. Auto Exposure Controls were utilized during the CT exam to meet ALARA standards for radiation dose reduction. All CT scans use one or more of the following dose optimizing techniques: automated exposure control, MA and/or KvP adjustment based on patient size and exam type or iterative reconstruction. INDICATION: Right-sided abdominal pain. COMPARISON: Prior CT from 09/08/2015. FINDINGS: The lung bases are clear. No discrete liver mass is identified. The gallbladder is surgically absent. There is no biliary ductal dilatation. The pancreas and spleen are unremarkable. A mixed density right adrenal mass is noted measuring 3.6 x 3.0 cm compared with 3.4 x 2.5 cm. The left adrenal gland is unremarkable. The kidneys are unremarkable. The aorta is calcified but nonaneurysmal. The bowel loops are of normal caliber. There is no evidence of obstruction. There is diverticulosis of the sigmoid colon but no evidence of acute diverticulitis. There is moderate stool in the sigmoid. No free fluid or fluid collection is identified. The bladder and prostate are unremarkable. Postop changes of posterior instrumented fusion from L2 to L5 are noted. IMPRESSION: 1. There has been some increase in size of the mixed density right adrenal mass when compared with the exam from 2016. This has the appearance of either an adenoma or myolipoma. 2. Uncomplicated diverticulosis. 3. No acute feature is detected. Dictated by: Dictated on workstation # [id number]
[2021-03-28] MEDS ORDERED: TETANUS,DIPTH,PERTUSS P/F (BOOSTRIX) 0.5 ML VIAL IM ONE ×2 (14:15→19:51)
[2021-03-28] MEDS ORDERED: LIDOCAINE 1% INJ 20 ML 20 ML VIAL INJ ONE (14:15)
[2021-03-28] MEDS ORDERED: ALPRAZolam 0.25 MG (XANAX) TAB PO ONE ×2 (14:15→17:45)
[2021-03-28] MEDS ORDERED: oxyCODONE/APAP 5/325MG (PERCOCET 5) TABLET PO ONE ×2 (14:45→17:45)
--- NOTE | 2021-03-28 15:14 | Diagnostic Imaging Report ---
INDICATION: Suicidal. TIME OF EXAM: 3:01 PM. COMPARISON: 11/25/2016. FINDINGS: The heart size is stable. The lungs are clear. No infiltrates are seen. There is no effusion or pneumothorax. There is a dual lead left subclavian cardiac pacemaker. IMPRESSION: No acute cardiopulmonary process is detected. Dictated by: Dictated on workstation # [id number]
[2021-03-28] MEDS ORDERED: LIDOCAINE 1% INJ 20 ML 20 ML VIAL ONE (18:27)
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
[2021-03-28] MEDS ORDERED: traZODone 150 MG (DESYREL) TABLET PO ONE (19:15)
[2021-03-28] MEDS ORDERED: KETOROLAC 30 MG/ML VIAL IVP ONE (22:00)
[2021-03-29] MEDS ORDERED: LORazepam INJ 2 MG/ML (ATIVAN) VIAL IVP ONE (00:15)
[2021-03-29 05:59] LABS: TRIGLYCERIDES 214 MG/DL (<150); VLDL CHOLESTEROL 43 MG/DL (5-40)
[2021-03-29 06:04] LABS: CHOLESTEROL 149 MG/DL (< 200)
[2021-03-29 06:05] LABS: HDL CHOLESTEROL 29 MG/DL (40-60)
[2021-03-29] MEDS ORDERED: diphenhydrAMINE 50 MG/ML INJ (BENADRYL) IVP ONE (07:15)
[2021-03-29] MEDS ORDERED: PROCHLORPERAZINE 10 MG/2ML INJ (COMPAZINE) IV ONE (07:15)
[2021-03-29 10:50] VITALS: BP 121/98
== END 2021-03-29 10:50 ==
LOC: EDUNIT# 10:59 → ER 11:00
DX: S61.431A Puncture wound without foreign body of right hand, initial encounter (principal); G89.29 Other chronic pain; M54.9 Dorsalgia, unspecified; R10.11 Right upper quadrant pain; R07.89 Other chest pain; F32.9 Major depressive disorder, single episode, unspecified; J44.9 Chronic obstructive pulmonary disease, unspecified; I10 Essential (primary) hypertension; F41.9 Anxiety disorder, unspecified; E11.9 Type 2 diabetes mellitus without complications; F17.210 Nicotine dependence, cigarettes, uncomplicated; Z20.822 Contact with and (suspected) exposure to COVID-19; Z23 Encounter for immunization; Z79.4 Long term (current) use of insulin
CPT/HCPCS: 70450; 70486; 71045; 72125; 74177; 80053; 80061; 80306; 81000; 82140; 82947 ×2; 83690; 83735; 83874; 84443; 84484; 85025; 85610; 85730; 87636; 93005; 99284; G0480 ×3; 36415; 80320; 80329; 90471; 90715; 96361; 96372; 96374; 96375

== ENCOUNTER 2021-11-19 23:28 | Emergency (ER) | payer MEDICARE, MEDICAID ==
[~2021-11-19] VITALS: Ht 185.4 cm; Wt 90.7 kg
[~2021-11-19 23:28] MED LIST changes: +FEXO-249 PO; -FEXO-46 PO
[2021-11-19 23:30] VITALS: BP 158/105
[2021-11-19] MEDS ORDERED: TETANUS,DIPTH,PERTUSS P/F (BOOSTRIX) 0.5 ML VIAL IM ONE (23:45)
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
== END 2021-11-20 00:45 | disposition left against medical advice (07) ==
LOC: EDUNIT# 23:28 → ER 23:29
DX: S91.111A Laceration without foreign body of right great toe without damage to nail, initial encounter (principal); F17.210 Nicotine dependence, cigarettes, uncomplicated; Z23 Encounter for immunization; W26.8XXA Contact with other sharp object(s), not elsewhere classified, initial encounter
CPT/HCPCS: 82947; 90715

== ENCOUNTER 2022-09-23 15:38 | Observation (INO) | payer MEDICARE, MEDICAID ==
[~2022-09-23] VITALS: Ht 185.4 cm; Wt 115.0 kg
[~2022-09-23 15:38] MED LIST changes: -FEXO-249 PO; +LEVO750T PO; -LEVO750T39 PO; +NF-ALLE180 PO
[2022-09-23] MEDS ORDERED: PROMETHAZINE INJ 25 MG/ML (PHENERGAN) AMP IVP ONE (16:00)
[2022-09-23 16:04] LABS: BASOPHILS # (AUTO) 0.1 10^3/uL (0.0-0.1); BASOPHILS % (AUTO) 0 % (0-10); EOSINOPHILS # (AUTO) 0.1 10^3/uL (0.0-0.3); EOSINOPHILS % (AUTO) 0 % (0-10); HEMATOCRIT 42 % (40-54); HEMOGLOBIN 14.5 g/dL (13.3-17.7); LYMPHOCYTES # (AUTO) 0.8 10^3/uL (1.0-4.0); LYMPHOCYTES % (AUTO) 3 % (12-44); MEAN CORPUSCULAR HEMOGLOBIN 29 pg (25-34); MEAN CORPUSCULAR HGB CONC 34 g/dL (32-36); MEAN CORPUSCULAR VOLUME 85 fL (80-99); MEAN PLATELET VOLUME 10.5 fL (9.0-12.2); MONOCYTES % (AUTO) 3 % (0-12); NEUTROPHILS % (AUTO) 93 % (42-75); PLATELET COUNT 256 10^3/uL (130-400)
[2022-09-23 16:08] LABS: WHITE BLOOD COUNT 30.2 10^3/uL (4.3-11.0)
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
[2022-09-23 16:11] LABS: ALBUMIN 4.2 GM/DL (3.2-4.5); POTASSIUM 4.2 MMOL/L (3.6-5.0)
[2022-09-23 16:13] LABS: CALCIUM 9.2 MG/DL (8.5-10.1)
[2022-09-23 16:14] LABS: TOTAL PROTEIN 7.2 GM/DL (6.4-8.2)
[2022-09-23] MEDS ORDERED: PIPERACILLIN SODIUM/TAZOBACTAM 4.5 GM in NS (IVPB) 100 ML IV ONE (16:15)
[2022-09-23 16:16] LABS: BILIRUBIN,TOTAL 0.4 MG/DL (0.1-1.0)
[2022-09-23 16:17] LABS: CREATININE SERUM 0.87 MG/DL (0.60-1.30)
[2022-09-23 16:19] LABS: PROTHROMBIN TIME PATIENT 14.2 SEC (12.2-14.7)
[2022-09-23] MEDS ORDERED: IOHEXOL 350 MG/ML 100 ML (OMNIPAQUE 350) VIAL IV ONE (16:30)
[2022-09-23] MEDS ORDERED: NS 100 ML (IVPB) BAG IV ONE (16:30)
[2022-09-23] MEDS ORDERED: HOLD METFORMIN - RECEIVED CONTRAST 20 ML VIAL IV SCH (16:30)
[2022-09-23 16:44] LABS: BAND NEUTROPHILS 1 %; LYMPHOCYTES % (MANUAL) 4 %; MONOCYTES % (MANUAL) 3 %; NEUTROPHILS % (MANUAL) 92 %; RBC MORPH NORMAL
--- NOTE | 2022-09-23 17:06 | Diagnostic Imaging Report ---
HISTORY: Sepsis TECHNIQUE: Frontal view of the chest. COMPARISON: 03/28/2021 FINDINGS: Lung volumes are normal. No consolidation is seen. There is no pleural effusion or pneumothorax. The cardiac silhouette is normal in size. Left-sided pacemaker leads appear stable. IMPRESSION: 1. No acute pulmonary abnormality. Dictated by: Dictated on workstation # [id number]
--- NOTE | 2022-09-23 17:33 | Diagnostic Imaging Report ---
PROCEDURE: CT abdomen and pelvis with contrast. TECHNIQUE: Multiple contiguous axial images were obtained through the abdomen and pelvis after administration of intravenous contrast. Auto Exposure Controls were utilized during the CT exam to meet ALARA standards for radiation dose reduction. All CT scans use one or more of the following dose optimizing techniques: automated exposure control, MA and/or KvP adjustment based on patient size and exam type or iterative reconstruction. INDICATION: Nausea and vomiting, abdominal distention. COMPARISON: 03/28/2021. FINDINGS: Lung bases demonstrate mild groundglass opacity at the lateral basal right lower lobe. The cardiac silhouette is normal in size. There is no pericardial effusion. There is mild wall thickening of the distal esophagus with fluid level. The liver appears normal in size. No focal hepatic lesions are seen. Cholecystectomy clips are noted. The spleen appears normal. The pancreas is mildly atrophic. There is a right adrenal nodule measuring 3.0 x 3.5 cm in size, similar to the prior exam and containing gross fat density. There is a very small 9 mm nodule in the left adrenal gland which is stable since the prior study. The kidneys demonstrate no enhancing lesions or hydronephrosis. There is marked stool in the colon and rectum. The rectum measures 7.5 x 8.9 cm on axial imaging. There are fluid-filled loops of bowel with mild wall thickening. No high-grade distention is seen. There is wall thickening in the duodenum and stomach as well. No free fluid is seen. No lymphadenopathy is seen. There are degenerative changes and postsurgical changes in the spine. IMPRESSION: 1. Fluid-filled small bowel with mild wall thickening in the stomach and small bowel, may represent a gastroenteritis. There is mild gastroesophageal reflux. 2. Marked stool throughout the colon and rectum, concerning for constipation/impaction. 3. Right adrenal nodule, most likely a myelolipoma. This is stable since the prior study. Tiny left adrenal nodule is most likely an adenoma and also appears stable. 4. Small groundglass opacity in the right lung base appears new, could be due to infectious or inflammatory etiology. Dictated by: Dictated on workstation # [id number]
[2022-09-23 18:40] VITALS: BP 138/68
[2022-09-23] MEDS ORDERED: ALPR0.254 PO (18:58)
[2022-09-23] MEDS ORDERED: ONDANSETRON 4 MG/2 ML (SDV) Z0FRAN IV PRN (20:00)
[2022-09-23 20:19] VITALS: BP 131/83
[2022-09-23] MEDS ORDERED: traZODone 150 MG (DESYREL) TABLET PO SCH (21:00)
[2022-09-23] MEDS: NS IV 1000 ML 1,000 ML IV SCH (21:08)
[2022-09-23] MEDS ORDERED: ALPR1TAB7 PO (21:38)
[2022-09-23] MEDS ORDERED: TRAZ150T72 PO (21:46)
[2022-09-23] MEDS: ALPRAZolam 1 MG (XANAX) TAB PO PRN (22:36)
[2022-09-23] MEDS: PIPERACILLIN SODIUM/TAZOBACTAM 4.5 GM in NS (IVPB) 100 ML IV SCH (22:37)
[2022-09-23 23:04] VITALS: BP 118/63
[2022-09-24 03:14] VITALS: BP 124/68
[2022-09-24] MEDS: PIPERACILLIN SODIUM/TAZOBACTAM 4.5 GM in NS (IVPB) 100 ML IV SCH (06:28)
[2022-09-24 07:47] VITALS: BP 127/82
[2022-09-24 08:36] LABS: HEMATOCRIT 38 % (40-54); HEMOGLOBIN 12.8 g/dL (13.3-17.7); MEAN CORPUSCULAR HEMOGLOBIN 29 pg (25-34); MEAN CORPUSCULAR HGB CONC 34 g/dL (32-36); MEAN CORPUSCULAR VOLUME 85 fL (80-99); MEAN PLATELET VOLUME 10.1 fL (9.0-12.2); PLATELET COUNT 200 10^3/uL (130-400); WHITE BLOOD COUNT 8.1 10^3/uL (4.3-11.0)
[2022-09-24 08:54] LABS: CALCIUM 8.7 MG/DL (8.5-10.1); CREATININE SERUM 0.73 MG/DL (0.60-1.30); POTASSIUM 4.5 MMOL/L (3.6-5.0)
[2022-09-24] MEDS: NS IV 1000 ML 1,000 ML IV SCH (10:34)
[2022-09-24] MEDS ORDERED: inSUlin ASPART (NovoLOG) 1 UNIT/0.01 ML (CHARGE PER UNIT) SC SCH (11:00)
[2022-09-24] MEDS ORDERED: GLIM2TAB4 PO (11:03)
[2022-09-24] MEDS ORDERED: PANT40TA52 PO (11:03)
[2022-09-24] MEDS ORDERED: CNC1KV IJ (11:03)
[2022-09-24] MEDS ORDERED: METF-865 PO (11:03)
[2022-09-24] MEDS ORDERED: MV-M-9 PO (11:03)
[2022-09-24] MEDS ORDERED: FURO20TA4 PO (11:03)
[2022-09-24] MEDS ORDERED: ENLP2.5T PO (11:03)
[2022-09-24] MEDS ORDERED: VITA-212 PO (11:03)
[2022-09-24] MEDS ORDERED: AMOX1TAB12 PO (11:03)
[2022-09-24 11:37] VITALS: BP 131/79
[2022-09-24] MEDS ORDERED: BISACODYL 10 MG SUPP (DULCOLAX) PR PRN (11:45)
[2022-09-24] MEDS ORDERED: FLEET ENEMA ADULT 1 EA BTL PR PRN (11:45)
[2022-09-24] MEDS: ALPRAZolam 1 MG (XANAX) TAB PO PRN (12:26)
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
--- NOTE | 2022-09-24 13:19 | Discharge Inst-Simple/Standard ---
Discharge Inst-Standard Patient Instructions/Follow Up Plan of Care/Instructions/FU: Please continue to take your medications as written. Please follow up with your primary care doctor to follow up this hospital stay. Activity as Tolerated: Yes Discharge Diet: ADA Diet Return to The Hospital For: Chest pain, shortness of breath, fever, weakness, if you feel you are getting worse. GYPSY CASTRO MD Sep 24, 2022 13:19
[2022-09-24 15:45] VITALS: BP 131/79
== END 2022-09-24 15:07 | disposition home or self-care (01) ==
LOC: EDUNIT# 15:38 → ER 15:39 → UNDOADMOB 18:02 → 4TH 18:02 → UNDODISOB 09-24 15:07
PROVIDERS: ADMIT Family Medicine; ATTEND Family Medicine
DX: D72.829 Elevated white blood cell count, unspecified (principal); K52.9 Noninfective gastroenteritis and colitis, unspecified; Z87.891 Personal history of nicotine dependence; Z28.310 Unvaccinated for COVID-19
CPT/HCPCS: 71045; 74177; 80048; 80053; 82140; 82947 ×2; 83605; 83690; 85007; 85027 ×2; 85610; 85730; 87040; 93005; 96366 ×2; 99284; G0378; 36415

== ENCOUNTER 2022-11-06 15:28 | Emergency (ER) | payer MEDICARE, MEDICAID ==
[~2022-11-06] VITALS: Ht 185 cm; Wt 103.8 kg
[~2022-11-06 15:28] MED LIST changes: +ALPR0.254 PO; +AMOX1TAB12 PO; +CNC1KV IJ; +GLIM2TAB4 PO; +METF-865 PO; +MV-M-9 PO; +VITA-212 PO
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
[2022-11-06 15:43] LABS: BASOPHILS # (AUTO) 0.1 10^3/uL (0.0-0.1); BASOPHILS % (AUTO) 0 % (0-10); EOSINOPHILS # (AUTO) 0.4 10^3/uL (0.0-0.3); EOSINOPHILS % (AUTO) 3 % (0-10); HEMATOCRIT 40 % (40-54); HEMOGLOBIN 13.6 g/dL (13.3-17.7); LYMPHOCYTES # (AUTO) 2.1 X 10^3 (1.0-4.0); LYMPHOCYTES % (AUTO) 16 % (12-44); MEAN CORPUSCULAR HEMOGLOBIN 29 pg (25-34); MEAN CORPUSCULAR HGB CONC 34 g/dL (32-36); MEAN CORPUSCULAR VOLUME 85 fL (80-99); MEAN PLATELET VOLUME 10.4 fL (9.0-12.2); MONOCYTES % (AUTO) 8 % (0-12); NEUTROPHILS # (AUTO) 9.4 X 10^3 (1.8-7.8); NEUTROPHILS % (AUTO) 73 % (42-75); PLATELET COUNT 224 10^3/uL (130-400)
[2022-11-06 15:53] LABS: ALBUMIN 4.1 GM/DL (3.2-4.5); CHLORIDE 102 MMOL/L (98-107); POTASSIUM 4.5 MMOL/L (3.6-5.0); SODIUM 133 MMOL/L (135-145)
[2022-11-06 15:54] LABS: CALCIUM 9.2 MG/DL (8.5-10.1)
[2022-11-06 15:55] LABS: GLUCOSE 118 MG/DL (70-105); TOTAL PROTEIN 7.3 GM/DL (6.4-8.2)
[2022-11-06 15:56] LABS: CARBON DIOXIDE 20 MMOL/L (21-32)
[2022-11-06 15:57] LABS: BILIRUBIN,TOTAL 0.5 MG/DL (0.1-1.0)
[2022-11-06 15:59] LABS: ALKALINE PHOSPHATASE 92 U/L (40-136); GFR ESTIMATED 84
[2022-11-06 16:00] LABS: BUN/CREATININE RATIO 26
[2022-11-06 16:02] LABS: ALANINE AMINOTRANSFERASE 18 U/L (0-55); LIPASE 38 U/L (8-78)
--- NOTE | 2022-11-06 16:18 | Diagnostic Imaging Report ---
INDICATION: Abdominal pain. EXAMINATION: Abdomen series FINDINGS: PA chest, supine and upright abdominal images were obtained. Lungs are clear. There is a dual-chamber pacemaker. Bowel gas pattern is normal. Gallbladder is surgically absent. There is no pathologic mass or calcification. There are postsurgical changes from fusion of the lumbar spine. IMPRESSION: No acute abnormality in the abdomen. Moderate fecal stasis. Dictated by: Dictated on workstation # [id number]
[2022-11-06 16:53] LABS: BILIRUBIN,URINE NEGATIVE (NEGATIVE); CLARITY,URINE CLEAR; COLOR,URINE YELLOW; GLUCOSE, URINE (UA) 3+ (NEGATIVE); KETONES,URINE NEGATIVE (NEGATIVE); LEUKOCYTE ESTERASE ,URINE NEGATIVE (NEGATIVE); NITRITE,URINE NEGATIVE (NEGATIVE); PROTEIN,URINE NEGATIVE (NEGATIVE)
[2022-11-06 17:04] LABS: BACTERIA,URINE NEGATIVE /HPF; SQUAMOUS EPITHELIAL CELL,UR RARE /HPF
[2022-11-06 17:47] VITALS: BP 145/87
== END 2022-11-06 17:47 | disposition home or self-care (01) ==
LOC: ER 15:28 → EDUNIT# 15:28 → ER 17:47
DX: K59.00 Constipation, unspecified (principal); R32 Unspecified urinary incontinence; R10.9 Unspecified abdominal pain; D72.829 Elevated white blood cell count, unspecified; E11.9 Type 2 diabetes mellitus without complications; Z79.4 Long term (current) use of insulin
CPT/HCPCS: 36415; 74022; 80053; 81000; 82947; 83690; 83735; 84484; 85025; 86141; 93005; 93041

== ENCOUNTER 2022-11-25 10:30 | Emergency (ER) | payer MEDICARE, MEDICAID ==
[2022-11-25 11:36] LABS: BASOPHILS # (AUTO) 0.1 10^3/uL (0.0-0.1); BASOPHILS % (AUTO) 1 % (0-10); EOSINOPHILS # (AUTO) 0.2 10^3/uL (0.0-0.3); EOSINOPHILS % (AUTO) 2 % (0-10); HEMATOCRIT 42 % (40-54); HEMOGLOBIN 13.9 g/dL (13.3-17.7); LYMPHOCYTES # (AUTO) 1.4 10^3/uL (1.0-4.0); LYMPHOCYTES % (AUTO) 13 % (12-44); MEAN CORPUSCULAR HEMOGLOBIN 29 pg (25-34); MEAN CORPUSCULAR HGB CONC 33 g/dL (32-36); MEAN CORPUSCULAR VOLUME 86 fL (80-99); MONOCYTES # (AUTO) 0.7 10^3/uL (0.0-1.0); MONOCYTES % (AUTO) 6 % (0-12); NEUTROPHILS # (AUTO) 8.2 10^3/uL (1.8-7.8); NEUTROPHILS % (AUTO) 77 % (42-75); PLATELET COUNT 208 10^3/uL (130-400); WHITE BLOOD COUNT 10.6 10^3/uL (4.3-11.0)
[2022-11-25 11:43] LABS: ALBUMIN 3.7 GM/DL (3.2-4.5); POTASSIUM 4.1 MMOL/L (3.6-5.0)
[2022-11-25 11:45] LABS: CALCIUM 8.7 MG/DL (8.5-10.1)
[2022-11-25 11:46] LABS: TOTAL PROTEIN 6.7 GM/DL (6.4-8.2)
[2022-11-25 11:48] LABS: BILIRUBIN,TOTAL 0.4 MG/DL (0.1-1.0)
[2022-11-25 11:49] LABS: CREATININE SERUM 0.84 MG/DL (0.60-1.30)
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
[2022-11-25 13:18] LABS: BILIRUBIN,URINE NEGATIVE (NEGATIVE); CLARITY,URINE CLEAR; COLOR,URINE YELLOW; GLUCOSE, URINE (UA) 3+ (NEGATIVE); KETONES,URINE NEGATIVE (NEGATIVE); LEUKOCYTE ESTERASE ,URINE NEGATIVE (NEGATIVE); NITRITE,URINE NEGATIVE (NEGATIVE); PROTEIN,URINE NEGATIVE (NEGATIVE)
[2022-11-25 13:26] LABS: RBC,URINE RARE /HPF
[2022-11-25 13:27] LABS: BACTERIA,URINE NEGATIVE /HPF
--- NOTE | 2022-11-25 13:36 | Diagnostic Imaging Report ---
PROCEDURE: US right lower extremity venous. TECHNIQUE: Multiple real-time grayscale images were obtained over the right lower extremity in various projections. Additional spectral analysis and color Doppler duplex images were also obtained. INDICATION: Right leg swelling. FINDINGS: The veins of the right leg have good color filling and compressibility. There is phasic flow and normal response to augmentation. IMPRESSION: Negative venous Doppler, right leg. Dictated by: Dictated on workstation # [id number]
[2022-11-25 15:45] VITALS: BP 136/78
== END 2022-11-25 15:46 | disposition home or self-care (01) ==
LOC: EDUNIT# 10:35 → ER 10:36
DX: R60.0 Localized edema (principal); Z74.1 Need for assistance with personal care
CPT/HCPCS: 12032; 36415; 80053; 81000; 82140; 83880; 85025; 86141

== ENCOUNTER 2023-01-23 14:30 | Observation (INO) | payer MEDICARE, MEDICAID ==
[~2023-01-23] VITALS: Ht 187.9 cm; Wt 101.8 kg
[2023-01-23 15:02] LABS: BILIRUBIN,URINE NEGATIVE (NEGATIVE); CLARITY,URINE CLEAR; COLOR,URINE YELLOW; GLUCOSE, URINE (UA) 3+ (NEGATIVE); KETONES,URINE NEGATIVE (NEGATIVE); LEUKOCYTE ESTERASE ,URINE NEGATIVE (NEGATIVE); NITRITE,URINE NEGATIVE (NEGATIVE); PH,URINE 6.5 (5-9); PROTEIN,URINE NEGATIVE (NEGATIVE)
[2023-01-23 15:06] LABS: BASOPHILS # (AUTO) 0.1 10^3/uL (0.0-0.1); BASOPHILS % (AUTO) 0 % (0-10); EOSINOPHILS # (AUTO) 0.2 10^3/uL (0.0-0.3); EOSINOPHILS % (AUTO) 1 % (0-10); HEMATOCRIT 40 % (40-54); HEMOGLOBIN 13.1 g/dL (13.3-17.7); LYMPHOCYTES # (AUTO) 2.1 10^3/uL (1.0-4.0); LYMPHOCYTES % (AUTO) 13 % (12-44); MEAN CORPUSCULAR HEMOGLOBIN 28 pg (25-34); MEAN CORPUSCULAR HGB CONC 33 g/dL (32-36); MEAN CORPUSCULAR VOLUME 86 fL (80-99); MEAN PLATELET VOLUME 10.9 fL (9.0-12.2); MONOCYTES % (AUTO) 6 % (0-12); NEUTROPHILS # (AUTO) 12.4 10^3/uL (1.8-7.8); NEUTROPHILS % (AUTO) 79 % (42-75); PLATELET COUNT 185 10^3/uL (130-400); WHITE BLOOD COUNT 15.8 10^3/uL (4.3-11.0)
[2023-01-23 15:20] LABS: BACTERIA,URINE NEGATIVE /HPF; RBC,URINE RARE /HPF
[2023-01-23 15:22] LABS: AMPHETAMINE SCREEN, URINE NEGATIVE (NEGATIVE); BARBITURATE SCREEN URINE NEGATIVE (NEGATIVE); BENZODIAZEPINES SCREEN URINE POSITIVE (NEGATIVE); CANNABINOID SCREEN, URINE NEGATIVE (NEGATIVE); COCAINE SCREEN URINE NEGATIVE (NEGATIVE); METHADONE STAT NEGATIVE (NEGATIVE); OPIATE SCREEN URINE NEGATIVE (NEGATIVE); OXYCODONE STAT NEGATIVE (NEGATIVE); PROPOXYPHENE STAT NEGATIVE (NEGATIVE); TRICYCLIC ANTIDEPRESSANTS SCRE NEGATIVE (NEGATIVE)
[2023-01-23 15:29] LABS: CHLORIDE 104 MMOL/L (98-107); POTASSIUM 3.9 MMOL/L (3.6-5.0); SODIUM 136 MMOL/L (135-145)
[2023-01-23 15:30] LABS: ALBUMIN 3.6 GM/DL (3.2-4.5)
[2023-01-23 15:31] LABS: CALCIUM 9.3 MG/DL (8.5-10.1)
[2023-01-23 15:32] LABS: GLUCOSE 216 MG/DL (70-105); TOTAL PROTEIN 6.9 GM/DL (6.4-8.2)
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
[2023-01-23 15:33] LABS: CARBON DIOXIDE 27 MMOL/L (21-32)
[2023-01-23 15:34] LABS: BILIRUBIN,TOTAL 0.5 MG/DL (0.1-1.0)
[2023-01-23 15:36] LABS: ALKALINE PHOSPHATASE 104 U/L (40-136); CREATININE SERUM 0.91 MG/DL (0.60-1.30); GFR ESTIMATED 93
[2023-01-23 15:37] LABS: BUN/CREATININE RATIO 18
[2023-01-23 15:38] LABS: ACETAMINOPHEN < 10 UG/ML (10-30)
[2023-01-23 15:39] LABS: ALANINE AMINOTRANSFERASE 15 U/L (0-55); SALICYLATE < 5.0 MG/DL (5.0-20.0)
[2023-01-23 15:59] LABS: TSH (THYROID ANALYZER) 0.68 UIU/ML (0.35-4.94)
[2023-01-23 16:06] LABS: EOSINOPHILS % (MANUAL) 1 %; LYMPHOCYTES % (MANUAL) 19 %; MONOCYTES % (MANUAL) 6 %; NEUTROPHILS % (MANUAL) 73 %; RBC MORPH NORMAL; REACTIVE LYMPHOCYTES 1 %
--- NOTE | 2023-01-23 16:22 | Diagnostic Imaging Report ---
EXAMINATION: Chest, one view. HISTORY: Leukocytosis. COMPARISON: 09/23/2022. FINDINGS: Patchy opacities are seen in the mid right lung. Stable prominent cardiac silhouette with left pectoral pacemaker. No pleural effusion or pneumothorax. No acute osseous abnormalities. IMPRESSION: 1. Findings concerning for pneumonia in the mid right lung. 2. Stable cardiomegaly. No overt pulmonary edema. Dictated by: Dictated on workstation # [id number]
[2023-01-23] MEDS ORDERED: traZODone 150 MG (DESYREL) TABLET PO ONE (18:00)
[2023-01-23] MEDS ORDERED: cefTRIAXone IV/IM 1,000 MG in NS (IVPB) 50 ML IV STA (18:00)
[2023-01-23 19:21] LABS: INR 1.1 (0.8-1.4); PROTHROMBIN TIME PATIENT 14.3 SEC (12.2-14.7)
[2023-01-23 20:58] VITALS: BP 156/83
[2023-01-23] MEDS ORDERED: ZIPRASIDONE 20 MG INJ (GEODON) VIAL IM PRN (21:00)
[2023-01-23] MEDS ORDERED: ANTACID SUSP 30 ML UDC (MYLANTA) PO PRN (21:00)
[2023-01-23] MEDS ORDERED: MILK OF MAGNESIA 400 MG/5 ML 30 ML UDC PO PRN (21:00)
[2023-01-23] MEDS ORDERED: MELATONIN 3 MG TABLET PO PRN (21:00)
[2023-01-23] MEDS ORDERED: ONDANSETRON 4 MG/2 ML (SDV) Z0FRAN IV PRN (21:00)
[2023-01-23] MEDS ORDERED: polyethylene glycoL POWDER 17 GM (MIRALAX) PACK PO PRN (21:00)
[2023-01-23] MEDS ORDERED: diphenhydrAMINE 25 MG TAB (BENADRYL) PO PRN (21:00)
[2023-01-23] MEDS ORDERED: LACTULOSE SYRUP 10GM/15ML (ENULOSE) 30ML UDC PO PRN (21:00)
[2023-01-23] MEDS ORDERED: BISACODYL 10 MG SUPP (DULCOLAX) PR PRN (21:00)
[2023-01-23] MEDS ORDERED: diphenhydrAMINE 50 MG/ML INJ (BENADRYL) IVP PRN (21:00)
[2023-01-23] MEDS ORDERED: ACETAMINOPHEN 325 MG TABLET PO PRN (21:00)
[2023-01-23] MEDS ORDERED: WATER (STERILE) FOR INJ 10 ML BTL INJ SCH (21:00)
[2023-01-23] MEDS ORDERED: ONDANSETRON 4 MG (ZOFRAN) ORAL DISSOLVE TAB PO PRN (21:00)
[2023-01-23] MEDS: ALPRAZolam 0.5 MG (XANAX) TAB PO PRN (22:43)
[2023-01-23] MEDS: ENOXAPARIN 40 MG/0.4 ML (LOVENOX) SYR SC SCH (22:43)
[2023-01-23] MEDS: DOCUSATE SODIUM 100 MG (COLACE) CAP PO SCH (22:45)
[2023-01-23] MEDS: SENNOSIDES 8.6 MG (SENOKOT) TAB PO SCH (22:46)
[2023-01-23] MEDS ORDERED: RT-ALBUTEROL SULF 2.5 MG/3 ML PRE-MIX VIAL INH PRN (23:00)
[2023-01-23 23:06] VITALS: BP 162/80
[2023-01-24 03:58] VITALS: BP 157/89
[2023-01-24 05:42] LABS: BASOPHILS # (AUTO) 0.1 10^3/uL (0.0-0.1); BASOPHILS % (AUTO) 1 % (0-10); EOSINOPHILS # (AUTO) 0.3 10^3/uL (0.0-0.3); EOSINOPHILS % (AUTO) 2 % (0-10); HEMATOCRIT 40 % (40-54); HEMOGLOBIN 13.2 g/dL (13.3-17.7); LYMPHOCYTES # (AUTO) 2.4 10^3/uL (1.0-4.0); LYMPHOCYTES % (AUTO) 20 % (12-44); MEAN CORPUSCULAR HEMOGLOBIN 28 pg (25-34); MEAN CORPUSCULAR HGB CONC 33 g/dL (32-36); MEAN CORPUSCULAR VOLUME 84 fL (80-99); MEAN PLATELET VOLUME 10.9 fL (9.0-12.2); MONOCYTES # (AUTO) 1.1 10^3/uL (0.0-1.0); MONOCYTES % (AUTO) 9 % (0-12); NEUTROPHILS # (AUTO) 8.1 10^3/uL (1.8-7.8); NEUTROPHILS % (AUTO) 68 % (42-75); PLATELET COUNT 194 10^3/uL (130-400)
[2023-01-24] MEDS: metFORMIN XR 500 MG (GLUCOPHAGE XR) TAB PO SCH ×2 (05:58→16:19)
[2023-01-24] MEDS: GLIMEPIRIDE 2 MG (AMARYL) TAB PO SCH (05:58)
[2023-01-24] MEDS: RT-ALBUTEROL SULF 2.5 MG/3 ML PRE-MIX VIAL INH SCH ×4 (06:01→19:37)
[2023-01-24 06:02] LABS: CALCIUM 8.8 MG/DL (8.5-10.1); CREATININE SERUM 0.84 MG/DL (0.60-1.30)
[2023-01-24 07:01] VITALS: BP 129/76
[2023-01-24] MEDS: SENNOSIDES 8.6 MG (SENOKOT) TAB PO SCH ×2 (08:33→20:57)
[2023-01-24] MEDS: PANTOPRAZOLE 40 MG (PROTONIX) TAB PO SCH (08:33)
[2023-01-24] MEDS: ENALAPRIL 2.5 MG (VASOTEC) TAB PO SCH (08:33)
[2023-01-24] MEDS: AZITHROMYCIN 250 MG TAB (ZITHROMAX) PO SCH (08:33)
[2023-01-24] MEDS: DOCUSATE SODIUM 100 MG (COLACE) CAP PO SCH ×2 (08:33→20:56)
[2023-01-24] MEDS: ALPRAZolam 0.5 MG (XANAX) TAB PO PRN ×2 (08:38→17:42)
[2023-01-24 11:00] VITALS: BP 131/71
[2023-01-24 15:05] VITALS: BP 145/91
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
[2023-01-24] MEDS ORDERED: ACET-2267 PO (15:43)
[2023-01-24] MEDS ORDERED: CYAN500T8 PO (15:43)
[2023-01-24] MEDS ORDERED: OXYC20TA3 PO (15:43)
[2023-01-24] MEDS ORDERED: INSU100I76 SC (15:43)
[2023-01-24] MEDS ORDERED: DAPA10TA PO (15:43)
[2023-01-24] MEDS: inSUlin ASPART (NovoLOG) 1 UNIT/0.01 ML (CHARGE PER UNIT) SC SCH ×2 (16:17→20:56)
[2023-01-24] MEDS: cefTRIAXone IV/IM 1,000 MG in NS (IVPB) 50 ML IV SCH (17:47)
[2023-01-24 19:17] VITALS: BP 167/98
[2023-01-24] MEDS ORDERED: ALPRAZolam 0.5 MG (XANAX) TAB PO NR (19:45)
[2023-01-24] MEDS: traZODone 150 MG (DESYREL) TABLET PO SCH (20:55)
[2023-01-24] MEDS: ENOXAPARIN 40 MG/0.4 ML (LOVENOX) SYR SC SCH (20:55)
[2023-01-24] MEDS: CALCIUM CARBONATE 500 MG (TUMS) TAB.CHEW PO PRN (21:48)
[2023-01-24 23:35] VITALS: BP 129/72
[2023-01-25 04:00] VITALS: BP 151/82
[2023-01-25] MEDS: ALPRAZolam 0.5 MG (XANAX) TAB PO PRN ×2 (05:00→13:14)
[2023-01-25 05:44] LABS: BASOPHILS # (AUTO) 0.1 10^3/uL (0.0-0.1); BASOPHILS % (AUTO) 1 % (0-10); EOSINOPHILS # (AUTO) 0.4 10^3/uL (0.0-0.3); EOSINOPHILS % (AUTO) 4 % (0-10); HEMATOCRIT 40 % (40-54); HEMOGLOBIN 13.3 g/dL (13.3-17.7); LYMPHOCYTES # (AUTO) 1.9 10^3/uL (1.0-4.0); LYMPHOCYTES % (AUTO) 18 % (12-44); MEAN CORPUSCULAR HEMOGLOBIN 28 pg (25-34); MEAN CORPUSCULAR HGB CONC 33 g/dL (32-36); MEAN CORPUSCULAR VOLUME 85 fL (80-99); MEAN PLATELET VOLUME 10.9 fL (9.0-12.2); MONOCYTES # (AUTO) 0.9 10^3/uL (0.0-1.0); MONOCYTES % (AUTO) 9 % (0-12); NEUTROPHILS # (AUTO) 6.7 10^3/uL (1.8-7.8); NEUTROPHILS % (AUTO) 67 % (42-75); PLATELET COUNT 214 10^3/uL (130-400); WHITE BLOOD COUNT 10.1 10^3/uL (4.3-11.0)
[2023-01-25 06:00] LABS: CREATININE SERUM 0.77 MG/DL (0.60-1.30); POTASSIUM 4.5 MMOL/L (3.6-5.0)
[2023-01-25] MEDS: metFORMIN XR 500 MG (GLUCOPHAGE XR) TAB PO SCH ×2 (06:28→17:33)
[2023-01-25] MEDS: inSUlin ASPART (NovoLOG) 1 UNIT/0.01 ML (CHARGE PER UNIT) SC SCH ×4 (06:28→20:31)
[2023-01-25] MEDS: GLIMEPIRIDE 2 MG (AMARYL) TAB PO SCH (06:28)
[2023-01-25] MEDS: RT-ALBUTEROL SULF 2.5 MG/3 ML PRE-MIX VIAL INH SCH ×4 (07:05→19:28)
[2023-01-25 08:00] VITALS: BP 119/76
[2023-01-25] MEDS: PANTOPRAZOLE 40 MG (PROTONIX) TAB PO SCH (08:21)
[2023-01-25] MEDS: AZITHROMYCIN 250 MG TAB (ZITHROMAX) PO SCH (08:21)
[2023-01-25] MEDS: SENNOSIDES 8.6 MG (SENOKOT) TAB PO SCH ×2 (08:21→20:31)
[2023-01-25] MEDS: ENALAPRIL 2.5 MG (VASOTEC) TAB PO SCH (08:21)
[2023-01-25] MEDS: DOCUSATE SODIUM 100 MG (COLACE) CAP PO SCH ×2 (08:21→20:31)
[2023-01-25] MEDS ORDERED: EMPAGLIFLOZIN 10 MG TABLET (JARDIANCE) PO ONE (11:30)
[2023-01-25] MEDS ORDERED: risperiDONE 0.25 MG (RisperDAL) TAB PO ONE (11:30)
[2023-01-25 12:00] VITALS: BP 129/79
--- NOTE | 2023-01-25 15:01 | Progress Note - Hospitalist ---
Subjective HPI/CC On Admission Date Seen by Provider: Jan 25, 2023 Time Seen by Provider: 11:00 Eric Bardales is a 67 year old male with PMH HTN, T2DM, anxiety, depression, who presented with suicidal ideation. He reports feeling depressed. He says he has no friends. His brother of cancer. He does enjoy fishing. He also says he went to a car race at [facility]. He has a gun at home and planned to shoot himself. He continues to have suicidal ideation upon my exam. He is anxiously asking about his xanax and trazodone. He has been receiving them as he does at home. He reports shortness of breath. He also has a cough productive of sputum. He denies fevers. He denies nausea and vomiting. He has no other complaints. Subjective/Events-last exam He is agitated and irritable this morning. He does not think he is getting his home medications. He does not know why they have him sitting in a chair. Focused Exam Lactate Level 01/23/23 18:34: Lactic Acid Level 0.77 Objective Exam Vital Signs Vital Signs Date Time Temp Pulse Resp B/P (MAP) Pulse Ox O2 Delivery O2 Flow Rate FiO2 01/25/23 12:00 36.8 91 18 129/79 (96) 96 Room Air 0.00 01/23/23 22:23 21 Capillary Refill : General Appearance: No Apparent Distress, Anxious Respiratory: Lungs Clear, No Respiratory Distress Cardiovascular: Regular Rate, Rhythm, No Murmur Gastrointestinal: Normal Bowel Sounds, Soft Extremity: Pedal Edema Skin: Normal Color, Warm/Dry Results/Procedures Lab Laboratory Tests 01/25/23 05:19 Patient resulted labs reviewed. Imaging: Reviewed Imaging Films, Reviewed Imaging Report Assessment/Plan Assessment and Plan Assess & Plan/Chief Complaint PNA Rocephin and Azithromycin MAT protocol Not requiring supplemental oxygen Suicidal ideation History of suicide attempt Anxiety and depression Continue home meds Social work following Screened by [facility], planning for transfer to inpatient facility Await placement HTN T2DM Continue home meds as able Increase Levemir Sliding scale insulin DVT prophylaxis: Lovenox Diagnosis/Problems Diagnosis/Problems (1) PNA (pneumonia) Status: Acute (2) Suicidal ideation Status: Acute (3) History of suicide attempt Status: Acute (4) Anxiety and depression Status: Acute (5) HTN (hypertension) Status: Chronic (6) T2DM (type 2 diabetes mellitus) Status: Chronic Qualifiers: Diabetes mellitus emt intermediate insulin use: with emt intermediate use Diabetes mellitus complication status: without complication Qualified Codes: E11.9 - Type 2 diabetes mellitus without complications; Z79.4 - emt intermediate (current) use of insulin ZACHERY ALEGRE MD Jan 25, 2023 15:00
[2023-01-25 15:51] VITALS: BP 163/98
[2023-01-25] MEDS: cefTRIAXone IV/IM 1,000 MG in NS (IVPB) 50 ML IV SCH (17:33)
[2023-01-25 19:10] VITALS: BP 139/65
[2023-01-25] MEDS: traZODone 150 MG (DESYREL) TABLET PO SCH (20:30)
[2023-01-25] MEDS: ENOXAPARIN 40 MG/0.4 ML (LOVENOX) SYR SC SCH (20:30)
[2023-01-25] MEDS: risperiDONE 0.25 MG (RisperDAL) TAB PO SCH (20:43)
[2023-01-25 23:18] VITALS: BP 163/91
[2023-01-26] VITALS (7 sets, daily range): BP systolic 104–148; BP diastolic 62–87
[2023-01-26] MEDS: metFORMIN XR 500 MG (GLUCOPHAGE XR) TAB PO SCH ×2 (06:05→16:01)
[2023-01-26] MEDS: inSUlin ASPART (NovoLOG) 1 UNIT/0.01 ML (CHARGE PER UNIT) SC SCH ×4 (06:05→20:17)
[2023-01-26] MEDS: ALPRAZolam 0.5 MG (XANAX) TAB PO PRN ×3 (06:05→22:19)
[2023-01-26] MEDS: GLIMEPIRIDE 2 MG (AMARYL) TAB PO SCH (06:05)
[2023-01-26 06:31] LABS: CALCIUM 9.3 MG/DL (8.5-10.1); CREATININE SERUM 0.78 MG/DL (0.60-1.30); POTASSIUM 4.6 MMOL/L (3.6-5.0)
[2023-01-26 06:35] LABS: BASOPHILS # (AUTO) 0.1 10^3/uL (0.0-0.1); BASOPHILS % (AUTO) 1 % (0-10); EOSINOPHILS # (AUTO) 0.4 10^3/uL (0.0-0.3); EOSINOPHILS % (AUTO) 3 % (0-10); HEMATOCRIT 43 % (40-54); HEMOGLOBIN 14.6 g/dL (13.3-17.7); LYMPHOCYTES # (AUTO) 2.4 10^3/uL (1.0-4.0); LYMPHOCYTES % (AUTO) 18 % (12-44); MEAN CORPUSCULAR HEMOGLOBIN 29 pg (25-34); MEAN CORPUSCULAR HGB CONC 34 g/dL (32-36); MEAN CORPUSCULAR VOLUME 84 fL (80-99); MEAN PLATELET VOLUME 10.8 fL (9.0-12.2); MONOCYTES % (AUTO) 7 % (0-12); NEUTROPHILS # (AUTO) 9.2 10^3/uL (1.8-7.8); NEUTROPHILS % (AUTO) 68 % (42-75); PLATELET COUNT 263 10^3/uL (130-400); WHITE BLOOD COUNT 13.6 10^3/uL (4.3-11.0)
[2023-01-26] MEDS: RT-ALBUTEROL SULF 2.5 MG/3 ML PRE-MIX VIAL INH SCH (06:52)
[2023-01-26] MEDS: PANTOPRAZOLE 40 MG (PROTONIX) TAB PO SCH (08:21)
[2023-01-26] MEDS: AZITHROMYCIN 250 MG TAB (ZITHROMAX) PO SCH (08:21)
[2023-01-26] MEDS: DOCUSATE SODIUM 100 MG (COLACE) CAP PO SCH ×2 (08:21→20:18)
[2023-01-26] MEDS: ENALAPRIL 2.5 MG (VASOTEC) TAB PO SCH (08:21)
[2023-01-26] MEDS: risperiDONE 0.25 MG (RisperDAL) TAB PO SCH ×2 (08:21→20:17)
[2023-01-26] MEDS: SENNOSIDES 8.6 MG (SENOKOT) TAB PO SCH ×2 (08:22→20:18)
[2023-01-26] MEDS ORDERED: EMPAGLIFLOZIN 10 MG TABLET (JARDIANCE) PO SCH (09:00)
[2023-01-26] MEDS ORDERED: RT-ALBUTEROL SULF 2.5 MG/3 ML PRE-MIX VIAL INH PRN (10:30)
[2023-01-26] MEDS ORDERED: SODIUM CHLORIDE 1 GM TABLET PO ONE (11:15)
[2023-01-26] MEDS ORDERED: PATIENT MAY USE OWN MED,SINGLE MED PO SCH (12:30)
--- NOTE | 2023-01-26 14:19 | Progress Note - Hospitalist ---
Subjective HPI/CC On Admission Date Seen by Provider: Jan 26, 2023 Time Seen by Provider: 11:00 Eric Bardales is a 67 year old male with PMH HTN, T2DM, anxiety, depression, who presented with suicidal ideation. He reports feeling depressed. He says he has no friends. His brother of cancer. He does enjoy fishing. He also says he went to a car race at [facility]. He has a gun at home and planned to shoot himself. He continues to have suicidal ideation upon my exam. He is anxiously asking about his xanax and trazodone. He has been receiving them as he does at home. He reports shortness of breath. He also has a cough productive of sputum. He denies fevers. He denies nausea and vomiting. He has no other complaints. Subjective/Events-last exam He denies shortness of breath. His cough is better. He is very thirsty and wants to drink more water. He was encouraged to limit water intake. Focused Exam Lactate Level 01/23/23 18:34: Lactic Acid Level 0.77 Objective Exam Vital Signs Vital Signs Date Time Temp Pulse Resp B/P (MAP) Pulse Ox O2 Delivery O2 Flow Rate FiO2 01/26/23 11:43 36.6 93 18 144/81 (102) 98 Room Air 01/26/23 10:09 21 01/26/23 08:00 0.00 Capillary Refill : General Appearance: No Apparent Distress, WD/WN Respiratory: Lungs Clear, No Respiratory Distress Cardiovascular: Regular Rate, Rhythm, No Murmur Gastrointestinal: Normal Bowel Sounds, Soft Extremity: Normal Inspection, No Pedal Edema Neurologic/Psychiatric: Alert, Other (agitated, irritable) Results/Procedures Lab Laboratory Tests 01/26/23 05:28 Patient resulted labs reviewed. Imaging: Reviewed Imaging Films, Reviewed Imaging Report Assessment/Plan Assessment and Plan Assess & Plan/Chief Complaint PNA Rocephin and Azithromycin MAT protocol Not requiring supplemental oxygen Suicidal ideation History of suicide attempt Anxiety and depression Continue home meds Social work following Screened by 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 Limit water intake Sodium tablet once Fluid restriction Powerade with meals HTN T2DM Continue home meds as able Continue Levemir Sliding scale insulin DVT prophylaxis: Lovenox Diagnosis/Problems Diagnosis/Problems (1) PNA (pneumonia) Status: Acute (2) Suicidal ideation Status: Acute (3) History of suicide attempt Status: Acute (4) Anxiety and depression Status: Acute (5) HTN (hypertension) Status: Chronic (6) T2DM (type 2 diabetes mellitus) Status: Chronic Qualifiers: Diabetes mellitus senior care insulin use: with manager intermediate use Diabetes mellitus complication status: without complication Qualified Codes: E11.9 - Type 2 diabetes mellitus without complications; Z79.4 - detention (current) use of insulin (7) Hyponatremia Status: Acute ZACHERY ALEGRE MD Jan 26, 2023 14:19
[2023-01-26] MEDS: CALCIUM CARBONATE 500 MG (TUMS) TAB.CHEW PO PRN ×2 (14:44→20:49)
[2023-01-26] MEDS: cefTRIAXone IV/IM 1,000 MG in NS (IVPB) 50 ML IV SCH (16:56)
[2023-01-26] MEDS: traZODone 150 MG (DESYREL) TABLET PO SCH (20:16)
[2023-01-26] MEDS: ENOXAPARIN 40 MG/0.4 ML (LOVENOX) SYR SC SCH (20:16)
[2023-01-27 04:03] VITALS: BP 144/91
[2023-01-27] MEDS: CALCIUM CARBONATE 500 MG (TUMS) TAB.CHEW PO PRN ×2 (04:41→17:33)
[2023-01-27] MEDS: ALPRAZolam 0.5 MG (XANAX) TAB PO PRN ×2 (05:51→13:26)
[2023-01-27] MEDS: inSUlin ASPART (NovoLOG) 1 UNIT/0.01 ML (CHARGE PER UNIT) SC SCH ×3 (05:53→16:40)
[2023-01-27] MEDS: metFORMIN XR 500 MG (GLUCOPHAGE XR) TAB PO SCH ×2 (05:53→16:40)
[2023-01-27] MEDS: GLIMEPIRIDE 2 MG (AMARYL) TAB PO SCH (05:53)
[2023-01-27 06:10] LABS: BASOPHILS # (AUTO) 0.1 10^3/uL (0.0-0.1); BASOPHILS % (AUTO) 1 % (0-10); EOSINOPHILS # (AUTO) 0.4 10^3/uL (0.0-0.3); EOSINOPHILS % (AUTO) 3 % (0-10); HEMATOCRIT 43 % (40-54); HEMOGLOBIN 14.4 g/dL (13.3-17.7); LYMPHOCYTES # (AUTO) 2.9 10^3/uL (1.0-4.0); LYMPHOCYTES % (AUTO) 20 % (12-44); MEAN CORPUSCULAR HEMOGLOBIN 28 pg (25-34); MEAN CORPUSCULAR HGB CONC 33 g/dL (32-36); MEAN CORPUSCULAR VOLUME 83 fL (80-99); MEAN PLATELET VOLUME 10.3 fL (9.0-12.2); MONOCYTES # (AUTO) 1.1 10^3/uL (0.0-1.0); MONOCYTES % (AUTO) 8 % (0-12); NEUTROPHILS # (AUTO) 8.9 10^3/uL (1.8-7.8); NEUTROPHILS % (AUTO) 63 % (42-75); PLATELET COUNT 279 10^3/uL (130-400); WHITE BLOOD COUNT 14.2 10^3/uL (4.3-11.0)
[2023-01-27 06:18] LABS: POTASSIUM 4.1 MMOL/L (3.6-5.0)
[2023-01-27 06:19] LABS: CALCIUM 9.3 MG/DL (8.5-10.1)
[2023-01-27 06:24] LABS: CREATININE SERUM 0.93 MG/DL (0.60-1.30)
[2023-01-27 08:09] VITALS: BP 97/58
[2023-01-27 08:15] VITALS: BP 116/76
[2023-01-27] MEDS: AZITHROMYCIN 250 MG TAB (ZITHROMAX) PO SCH (09:23)
[2023-01-27] MEDS: SENNOSIDES 8.6 MG (SENOKOT) TAB PO SCH (09:23)
[2023-01-27] MEDS: risperiDONE 0.25 MG (RisperDAL) TAB PO SCH (09:23)
[2023-01-27] MEDS: DOCUSATE SODIUM 100 MG (COLACE) CAP PO SCH (09:23)
[2023-01-27] MEDS: ENALAPRIL 2.5 MG (VASOTEC) TAB PO SCH (09:23)
[2023-01-27] MEDS: PANTOPRAZOLE 40 MG (PROTONIX) TAB PO SCH (09:23)
--- NOTE | 2023-01-27 11:16 | Progress Note - Hospitalist ---
Subjective HPI/CC On Admission Date Seen by Provider: Jan 27, 2023 Eric Bardales is a 67 year old male with PMH HTN, T2DM, anxiety, depression, who presented with suicidal ideation. He reports feeling depressed. He says he has no friends. His brother of cancer. He does enjoy fishing. He also says he went to a car race at [facility]. He has a gun at home and planned to shoot himself. He continues to have suicidal ideation upon my exam. He is anxiously asking about his xanax and trazodone. He has been receiving them as he does at home. He reports shortness of breath. He also has a cough productive of sputum. He denies fevers. He denies nausea and vomiting. He has no other complaints. Subjective/Events-last exam Pt reports doing well. Asking about going home. Discussed the concerns about that given his suicidal ideation on arrival. He states that he was just depressed that day and didn't mean it. Informed him of the outcome of his mental health screen. He is agreeable with talkig to social work about plans for getting out of this hospital. Objective Exam Vital Signs Vital Signs Date Time Temp Pulse Resp B/P (MAP) Pulse Ox O2 Delivery O2 Flow Rate FiO2 01/27/23 08:15 36.2 86 18 116/76 (89) 98 Room Air 01/26/23 10:09 21 01/26/23 08:00 0.00 Capillary Refill : General Appearance: No Apparent Distress, Chronically ill Respiratory: Lungs Clear Cardiovascular: Regular Rate, Rhythm, No Murmur Neurologic/Psychiatric: Alert, Oriented x3 Results/Procedures Lab Laboratory Tests 01/27/23 05:35 Patient resulted labs reviewed. 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
[2023-01-27 11:57] VITALS: BP 151/94
[2023-01-27] MEDS ORDERED: LOPERAMIDE 2 MG (IMODIUM) TABLET PO PRN (14:45)
--- NOTE | 2023-01-27 15:06 | Discharge Summary ---
Diagnosis/Chief Complaint Date of Admission Jan 23, 2023 at 20:42 Date of Discharge Discharge Date: Jan 27, 2023 Admission Diagnosis Pneumonia Primary Care Kana Bloom DO Discharge Diagnosis (1) PNA (pneumonia) Status: Acute (2) Suicidal ideation Status: Acute (3) History of suicide attempt Status: Acute (4) Anxiety and depression Status: Acute (5) HTN (hypertension) Status: Chronic (6) T2DM (type 2 diabetes mellitus) Status: Chronic (7) Hyponatremia Status: Acute Discharge Summary Discharge Physical Exam Allergies: Coded Allergies: No Known Drug Allergies (Unverified , 06/15/20) Vitals & I&Os Vital Signs Date Time Temp Pulse Resp B/P (MAP) Pulse Ox O2 Delivery O2 Flow Rate FiO2 01/27/23 18:25 01/27/23 16:00 36.9 88 14 95 01/27/23 13:34 Room Air 0.00 01/26/23 10:09 21 General Appearance: No Apparent Distress, WD/WN Respiratory: Lungs Clear, No Respiratory Distress Cardiovascular: Regular Rate, Rhythm Neurologic/Psychiatric: Alert, Oriented x3 Hospital Course Patient is 67-year-old male who presented to the emergency department due to suicidal ideation. He was incidentally found to have community-acquired pneumonia and was treated with Rocephin and azithromycin. He did not require oxygen and was hemodynamically stable throughout his admission for this. His IV antibiotics were discontinued and he was switched to oral antibiotics and was tolerating them well. He was medically optimized for discharge to inpatient psych for treatment of his depression. He then refused to go voluntarily and mental health was out to rescreen the patient and he screened and for involuntary admission. He was accepted for inpatient psychiatric admission to [facility] in [place]. Labs (last 24 hrs) Microbiology 01/23/23 Blood Culture - Final, Complete No growth Patient resulted labs reviewed. Pending Labs Imaging: Reviewed Imaging Films, Reviewed Imaging Report Discussion & Recommendations Discharge Planning: >30 minutes discharge planning Discharge Home Medications: Active Scripts Active Cephalexin 250 Mg Capsule 500 Mg PO BID 1 Days Azithromycin 250 Mg Tablet 250 Mg PO DAILY 1 Days Reported Vitamin B-12 (Cyanocobalamin (Vitamin B-12)) 500 Mcg Tablet 500 Mcg PO DAILY Tylenol Extra Strength (Acetaminophen) 500 Mg Tablet 500 Mg PO DAILY Insulin Glargine-Yfgn 100 Unit/Ml (3 Ml) Insuln.pen 30 Units SC 1500 Farxiga (Dapagliflozin Propanediol) 10 Mg Tablet 10 Mg PO DAILY Oxycodone HCl 20 Mg Tablet 20 Mg PO Q12H Centrum Men 50 Plus Minis Tab (Mv-Min/Folic/K1/Lycopen/Lutein) 150 Mcg-30 Mcg- 300 Mcg-150 Mcg Tablet 1 Each PO DAILY Vitamin E (Vitamin E Mixed) 400 Unit Capsule 400 Unit PO DAILY Furosemide 20 Mg Tablet 20 Mg PO DAILY Enalapril Maleate 2.5 Mg Tablet 2.5 Mg PO BID Pantoprazole Sodium 40 Mg Tablet.dr 40 Mg PO DAILY Cyanocobalamin Injection (Cyanocobalamin) 1,000 Mcg/Ml Inj 1,000 Mcg IJ MONTHLY Metformin HCl ER (Metformin HCl) 500 Mg Tab.er.24h 1,000 Mg PO BID WITH MEALS TAKES 2 (500MG) TABS Glimepiride 2 Mg Tablet 1 Mg PO DAILY TAKES OF A 2MG TAB Trazodone HCl 150 Mg Tablet 150 Mg PO HS Alprazolam 1 Mg Tablet 1 Mg PO Q8H Instructions to patient/family Please see electronic discharge instructions given to patient. Problem Qualifiers (1) T2DM (type 2 diabetes mellitus): Diabetes mellitus terminal operations supervisor insulin use: with correction use Diabetes mellitus complication status: without complication Qualified Codes: E11.9 - Type 2 diabetes mellitus without complications; Z79.4 - regional intermodal truck driver (current) use of insulin GYPSY CASTRO MD Jan 27, 2023 15:06
[2023-01-27] MEDS ORDERED: CEPH250C PO (15:09)
[2023-01-27] MEDS ORDERED: AZIT250T12 PO (15:09)
[2023-01-27 16:00] VITALS: BP 117/70
[2023-01-27] MEDS ORDERED: CEPHALEXIN 250 MG (KEFLEX) CAP PO SCH (21:00)
== END 2023-01-27 18:25 | disposition psychiatric hospital, planned readmission (93) ==
LOC: EDUNIT# 14:41 → ER 14:42 → 4TH 20:42 → INTOOBSV 20:42
PROVIDERS: ADMIT Internal Medicine; ATTEND Family Medicine
DX: J18.9 Pneumonia, unspecified organism (principal); R45.851 Suicidal ideations; F41.9 Anxiety disorder, unspecified; F32.A Depression, unspecified; E11.9 Type 2 diabetes mellitus without complications; E87.1 Hypo-osmolality and hyponatremia; I10 Essential (primary) hypertension; Z87.891 Personal history of nicotine dependence; Z79.4 Long term (current) use of insulin; Z28.310 Unvaccinated for COVID-19; Z79.899 Other long term (current) drug therapy
CPT/HCPCS: 36415; 71045; 80048; 80053; 80306; 80320; 80329; 81000; 82947; 83605; 84443; 85007; 85025; 85027; 85610; 85730; 86141; 87040; 87636; 93005; 94640; 94664; 94760; 96372; 96374; 96375; 96376; G0378

== ENCOUNTER 2023-03-14 08:59 | Emergency (ER) | payer MEDICARE, MEDICAID ==
[~2023-03-14] VITALS: Ht 185 cm; Wt 99.0 kg
[~2023-03-14 08:59] MED LIST changes: +ACET-2267 PO; +AZIT250T12 PO; +CEPH250C PO; +CYAN500T8 PO; +INSU100I76 SC; +OXYC20TA3 PO
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
[2023-03-14 09:32] LABS: BASOPHILS # (AUTO) 0.1 10^3/uL (0.0-0.1); BASOPHILS % (AUTO) 1 % (0-10); EOSINOPHILS # (AUTO) 0.6 10^3/uL (0.0-0.3); EOSINOPHILS % (AUTO) 5 % (0-10); HEMATOCRIT 44 % (40-54); HEMOGLOBIN 14.2 g/dL (13.3-17.7); LYMPHOCYTES # (AUTO) 2.3 10^3/uL (1.0-4.0); LYMPHOCYTES % (AUTO) 18 % (12-44); MEAN CORPUSCULAR HEMOGLOBIN 28 pg (25-34); MEAN CORPUSCULAR HGB CONC 33 g/dL (32-36); MEAN CORPUSCULAR VOLUME 87 fL (80-99); MEAN PLATELET VOLUME 10.7 fL (9.0-12.2); MONOCYTES # (AUTO) 0.7 10^3/uL (0.0-1.0); MONOCYTES % (AUTO) 6 % (0-12); NEUTROPHILS # (AUTO) 8.8 10^3/uL (1.8-7.8); NEUTROPHILS % (AUTO) 71 % (42-75); PLATELET COUNT 185 10^3/uL (130-400); WHITE BLOOD COUNT 12.5 10^3/uL (4.3-11.0)
[2023-03-14 09:52] LABS: CHLORIDE 105 MMOL/L (98-107); POTASSIUM 4.1 MMOL/L (3.6-5.0); SODIUM 138 MMOL/L (135-145)
[2023-03-14 09:53] LABS: ALBUMIN 3.8 GM/DL (3.2-4.5)
[2023-03-14 09:54] LABS: CALCIUM 9.1 MG/DL (8.5-10.1)
[2023-03-14 09:55] LABS: GLUCOSE 125 MG/DL (70-105); TOTAL PROTEIN 6.7 GM/DL (6.4-8.2)
[2023-03-14 09:56] LABS: CARBON DIOXIDE 23 MMOL/L (21-32)
[2023-03-14 09:57] LABS: BILIRUBIN,TOTAL 0.3 MG/DL (0.1-1.0)
[2023-03-14 09:59] LABS: ALKALINE PHOSPHATASE 111 U/L (40-136); CREATININE SERUM 0.84 MG/DL (0.60-1.30); GFR ESTIMATED 96
[2023-03-14 10:00] LABS: BUN/CREATININE RATIO 25
[2023-03-14 10:01] LABS: ACETAMINOPHEN < 10 UG/ML (10-30); SALICYLATE < 5.0 MG/DL (5.0-20.0)
[2023-03-14 10:02] LABS: ALANINE AMINOTRANSFERASE 42 U/L (0-55)
--- NOTE | 2023-03-14 10:20 | Diagnostic Imaging Report ---
Clinical Indication: Patient with altered mental status and low blood pressure. Exam: Axial CT scan of the brain without IV contrast with coronal and sagittal reformatted images. Auto Exposure Controls were utilized during the CT exam to meet ALARA standards for radiation dose reduction. Comparison: CT scan of the head, face, and cervical spine dated 03/28/2021. Findings: There is no evidence of acute cerebral infarct, intracranial hemorrhage, or gross mass effect. The brain parenchymal volume appears appropriate for patient's age. There are patchy areas of low-density involving white matter both cerebral hemispheres, likely representing chronic small vessel ischemic disease and leukoaraiosis. There is normal beal-white matter distinction. There is no significant midline shift or herniation. There is no evidence of hydrocephalus. The basal cisterns are unremarkable. The skull, extracranial soft tissue, and orbits are unremarkable. There is minimal mucosal thickening involving the ethmoid sinus. Temporal bones show no significant abnormality. Impression: 1: There is no CT evidence of acute intracranial process. 2: Age-related brain parenchymal changes including small vessel ischemic disease. Dictated by: Dictated on workstation # [id number]
[2023-03-14 10:58] LABS: BILIRUBIN,URINE NEGATIVE (NEGATIVE); CLARITY,URINE CLEAR; COLOR,URINE YELLOW; GLUCOSE, URINE (UA) 2+ (NEGATIVE); KETONES,URINE NEGATIVE (NEGATIVE); LEUKOCYTE ESTERASE ,URINE NEGATIVE (NEGATIVE); NITRITE,URINE POSITIVE (NEGATIVE); PH,URINE 5.5 (5-9); PROTEIN,URINE NEGATIVE (NEGATIVE)
[2023-03-14 11:07] LABS: BACTERIA,URINE TRACE /HPF; SQUAMOUS EPITHELIAL CELL,UR RARE /HPF; URINE OTHER FEW SPERM /HPF; WBC,URINE RARE /HPF
[2023-03-14 11:12] LABS: AMPHETAMINE SCREEN, URINE NEGATIVE (NEGATIVE); BARBITURATE SCREEN URINE NEGATIVE (NEGATIVE); BENZODIAZEPINES SCREEN URINE POSITIVE (NEGATIVE); CANNABINOID SCREEN, URINE NEGATIVE (NEGATIVE); COCAINE SCREEN URINE NEGATIVE (NEGATIVE); METHADONE STAT NEGATIVE (NEGATIVE); OPIATE SCREEN URINE NEGATIVE (NEGATIVE); OXYCODONE STAT NEGATIVE (NEGATIVE); PROPOXYPHENE STAT NEGATIVE (NEGATIVE); TRICYCLIC ANTIDEPRESSANTS SCRE NEGATIVE (NEGATIVE)
[2023-03-14] MEDS ORDERED: CIPR500T5 PO (12:05)
[2023-03-14 12:20] VITALS: BP 107/82
== END 2023-03-14 12:20 | disposition home or self-care (01) ==
LOC: EDUNIT# 08:59 → ER 09:00
DX: R41.82 Altered mental status, unspecified (principal); T50.901A Poisoning by unspecified drugs, medicaments and biological substances, accidental (unintentional), initial encounter; E11.9 Type 2 diabetes mellitus without complications; Z79.4 Long term (current) use of insulin; Z87.891 Personal history of nicotine dependence; Z28.310 Unvaccinated for COVID-19
CPT/HCPCS: 36415; 70450; 80053; 80306; 80320; 80329; 81000; 85025; 87088; 93005; 93041

== ENCOUNTER 2023-03-27 12:46 | Emergency (ER) | payer MEDICARE, MEDICAID ==
[~2023-03-27] VITALS: Ht 185.5 cm; Wt 99.8 kg
[~2023-03-27 12:46] MED LIST changes: +CIPR500T5 PO
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
[2023-03-27 13:28] LABS: BASOPHILS # (AUTO) 0.1 10^3/uL (0.0-0.1); BASOPHILS % (AUTO) 0 % (0-10); EOSINOPHILS # (AUTO) 0.4 10^3/uL (0.0-0.3); EOSINOPHILS % (AUTO) 2 % (0-10); HEMATOCRIT 43 % (40-54); LYMPHOCYTES % (AUTO) 11 % (12-44); MEAN CORPUSCULAR HEMOGLOBIN 29 pg (25-34); MEAN CORPUSCULAR HGB CONC 32 g/dL (32-36); MEAN CORPUSCULAR VOLUME 88 fL (80-99); MEAN PLATELET VOLUME 10.3 fL (9.0-12.2); MONOCYTES # (AUTO) 1.1 10^3/uL (0.0-1.0); MONOCYTES % (AUTO) 7 % (0-12); NEUTROPHILS # (AUTO) 13.5 10^3/uL (1.8-7.8); NEUTROPHILS % (AUTO) 79 % (42-75); PLATELET COUNT 219 10^3/uL (130-400); WHITE BLOOD COUNT 17.1 10^3/uL (4.3-11.0)
[2023-03-27] MEDS: NS IV 500 ML 500 ML IV ONE ×2 (13:32→14:42)
[2023-03-27 13:37] LABS: ALBUMIN 3.8 GM/DL (3.2-4.5)
[2023-03-27 13:38] LABS: POTASSIUM 4.9 MMOL/L (3.6-5.0)
[2023-03-27 13:40] LABS: TOTAL PROTEIN 7.3 GM/DL (6.4-8.2)
[2023-03-27 13:42] LABS: BILIRUBIN,TOTAL 0.4 MG/DL (0.1-1.0)
[2023-03-27 13:43] LABS: LYMPHOCYTES % (MANUAL) 14 %; MONOCYTES % (MANUAL) 5 %; NEUTROPHILS % (MANUAL) 81 %
[2023-03-27 13:44] LABS: CREATININE SERUM 0.96 MG/DL (0.60-1.30); RBC MORPH NORMAL
[2023-03-27 16:20] LABS: BACTERIA,URINE TRACE /HPF; BILIRUBIN,URINE NEGATIVE (NEGATIVE); CLARITY,URINE CLEAR; COLOR,URINE ORANGE; GLUCOSE, URINE (UA) 3+ (NEGATIVE); KETONES,URINE TRACE (NEGATIVE); LEUKOCYTE ESTERASE ,URINE NEGATIVE (NEGATIVE); NITRITE,URINE POSITIVE (NEGATIVE); PH,URINE 6.5 (5-9); PROTEIN,URINE NEGATIVE (NEGATIVE); WBC,URINE 0-2 /HPF
[2023-03-27] MEDS ORDERED: CEFD300C3 PO (16:35)
[2023-03-27] MEDS: CEFDINIR 300 MG CAPSULE PO ONE (16:40)
[2023-03-27 16:45] VITALS: BP 126/81
== END 2023-03-27 16:48 | disposition home or self-care (01) ==
LOC: EDUNIT# 12:46 → ER 12:48
DX: N39.0 Urinary tract infection, site not specified (principal); K59.00 Constipation, unspecified; E11.9 Type 2 diabetes mellitus without complications; Z79.4 Long term (current) use of insulin; Z28.310 Unvaccinated for COVID-19
CPT/HCPCS: 36415; 80053; 81000; 83605; 85007; 85027; 87040; 87088

== ENCOUNTER → 2023-04-15 | Outpatient (CLI) | payer MEDICARE, MEDICAID ==
[~2023-04-15] MED LIST changes: +CEFD300C3 PO
== END ==
LOC: CARD 09:43
PROVIDERS: ATTEND Internal Medicine Cardiovascular Disease
DX: I11.0 Hypertensive heart disease with heart failure (principal); I50.20 Unspecified systolic (congestive) heart failure; I35.0 Nonrheumatic aortic (valve) stenosis
CPT/HCPCS: 93306

== ENCOUNTER 2023-04-16 16:07 | Emergency (ER) | payer MEDICARE, MEDICAID ==
[~2023-04-16] VITALS: Ht 187 cm; Wt 100.0 kg
[2023-04-16 16:28] LABS: BASOPHILS # (AUTO) 0.1 10^3/uL (0.0-0.1); BASOPHILS % (AUTO) 1 % (0-10); EOSINOPHILS # (AUTO) 0.4 10^3/uL (0.0-0.3); EOSINOPHILS % (AUTO) 3 % (0-10); HEMATOCRIT 44 % (40-54); HEMOGLOBIN 14.2 g/dL (13.3-17.7); LYMPHOCYTES # (AUTO) 1.5 10^3/uL (1.0-4.0); LYMPHOCYTES % (AUTO) 11 % (12-44); MEAN CORPUSCULAR HEMOGLOBIN 28 pg (25-34); MEAN CORPUSCULAR HGB CONC 32 g/dL (32-36); MEAN CORPUSCULAR VOLUME 88 fL (80-99); MEAN PLATELET VOLUME 10.9 fL (9.0-12.2); MONOCYTES % (AUTO) 8 % (0-12); NEUTROPHILS # (AUTO) 9.8 10^3/uL (1.8-7.8); NEUTROPHILS % (AUTO) 76 % (42-75); PLATELET COUNT 173 10^3/uL (130-400); WHITE BLOOD COUNT 12.9 10^3/uL (4.3-11.0)
[2023-04-16 16:36] LABS: ALBUMIN 3.8 GM/DL (3.2-4.5); CHLORIDE 100 MMOL/L (98-107); SODIUM 134 MMOL/L (135-145)
[2023-04-16 16:38] LABS: CALCIUM 8.7 MG/DL (8.5-10.1)
[2023-04-16 16:39] LABS: GLUCOSE 168 MG/DL (70-105); TOTAL PROTEIN 6.9 GM/DL (6.4-8.2)
[2023-04-16 16:40] LABS: CARBON DIOXIDE 22 MMOL/L (21-32)
[2023-04-16 16:42] LABS: ALKALINE PHOSPHATASE 218 U/L (40-136)
[2023-04-16 16:43] LABS: CREATININE SERUM 0.84 MG/DL (0.60-1.30); GFR ESTIMATED 96
[2023-04-16 16:44] LABS: BUN/CREATININE RATIO 29
[2023-04-16 16:45] LABS: ALANINE AMINOTRANSFERASE 62 U/L (0-55)
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
[2023-04-16] MEDS ORDERED: IOHEXOL 350 MG/ML 100 ML (OMNIPAQUE 350) VIAL IV ONE (17:00)
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
--- NOTE | 2023-04-16 17:11 | Diagnostic Imaging Report ---
EXAMINATION: CT chest, abdomen and pelvis with intravenous contrast. TECHNIQUE: Multiple contiguous axial images were obtained through the chest, abdomen and pelvis after the uneventful administration of intravenous contrast. All CT scans use one or more of the following dose optimizing techniques: automated exposure control, MA and/or KvP adjustment based on patient size and exam type or iterative reconstruction. HISTORY: Chest and abdomen injury. COMPARISON: None available. FINDINGS: There is no edema or pneumonia. No pleural effusion. No pneumothorax. There is tree-in-bud in the lower lobes and right middle and upper lobe. There is mucus in the trachea. Findings likely represent aspiration. There is no axillary or supraclavicular lymphadenopathy. There is no mediastinal lymphadenopathy. Heart size is normal. There are severe coronary artery calcifications. No pericardial effusion. Aorta is normal in caliber. The liver is normal without focal lesion. There is no biliary ductal dilation. Gallbladder is absent. Pancreas is normal. Spleen is normal. 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 The kidneys are normal. There is no hydronephrosis. Urinary bladder is normal. Bowel is normal in caliber without obstruction or inflammation. No free fluid or air. No abdominal or pelvic lymphadenopathy. Aorta is atherosclerotic without aneurysm. There are no suspicious osseus lesions. There are acute right third, fourth and fifth rib fractures. There are old rib fractures bilaterally. Pacemaker is present. There has been a lumbar spine fusion. There is a left glenoid fracture. IMPRESSION: 1. Right third, fourth and fifth rib fractures. There is also a left glenoid fracture. 2. Findings of aspiration most pronounced on the right. Dictated by: Dictated on workstation # [id number]
--- NOTE | 2023-04-16 17:20 | Diagnostic Imaging Report ---
SHOULDER, LEFT, 3 VIEWS INDICATION: Left shoulder pain after trauma COMPARISON: 10/20/2013 TECHNIQUE: 3 views of the left shoulder FINDINGS: Abnormal lucency in the superior aspect of the glenoid is seen only on the Grashey view. Nonaggressive periosteal reaction along the cranial aspect of the acromion has a chronic appearance. Glenohumeral alignment is normal. No AC joint dislocation. IMPRESSION: 1. Lucency projecting at the superior aspect of the glenoid articular surface is likely artifactual from overlying soft tissues. However, if patient has severe shoulder pain, then CT left shoulder should be performed to assess for potential fracture. Dictated by: Dictated on workstation # [id number]
[2023-04-16] MEDS ORDERED: oxyCODONE/ACETAMINOPHEN 5/325MG TABLET PO ONE (19:00)
[2023-04-16 19:10] VITALS: BP 124/80
== END 2023-04-16 19:13 | disposition home or self-care (01) ==
LOC: EDUNIT# 16:07 → ER 16:08
DX: S42.142A Displaced fracture of glenoid cavity of scapula, left shoulder, initial encounter for closed fracture (principal); S12.200A Unspecified displaced fracture of third cervical vertebra, initial encounter for closed fracture; E11.9 Type 2 diabetes mellitus without complications; Z79.4 Long term (current) use of insulin; V89.2XXA Person injured in unspecified motor-vehicle accident, traffic, initial encounter; Y92.410 Unspecified street and highway as the place of occurrence of the external cause
CPT/HCPCS: 70450; 71260; 72125; 73030; 74177; 80053; 85025; 99284; G0480; 36415; 80320

== ENCOUNTER → 2023-04-24 | Outpatient (CLI) | payer MEDICARE, MEDICAID ==
--- NOTE | 2023-04-24 14:48 | Diagnostic Imaging Report ---
INDICATION: Cough. COMPARISON: Prior exam of 01/23/2023. FINDINGS: The heart size is normal. The lungs are clear. There is no pleural effusion or pneumothorax. The mediastinum is unremarkable. Pacemaker lies in left hemithorax. IMPRESSION: 1. No acute cardiopulmonary abnormality. 2. Cardiomegaly. Dictated by: Dictated on workstation # [id number]
== END ==
LOC: RAD 13:40
PROVIDERS: ATTEND Internal Medicine Cardiovascular Disease
DX: I51.7 Cardiomegaly (principal)
CPT/HCPCS: 71046